=== PATIENT | male | born 1935 | race Caucasian/White ===

== ENCOUNTER → 2016-10-23 | Outpatient (CLI) | payer OTHER ==
[~2016-10-23] MED LIST: ASPI-650 PO; CARV6.2579 PO; DIAZ10TA4 PO; DIPH-232 PO; ETRA200T PO; FENO160T13 PO; HYDR-1666 PO; INTELENCE; LISI-313 PO; MIRT15TA3 PO; OLOP5DRO12 OP; PRAV80TA PO; RALT400T4 PO; SELE180S3 TP; SILD50TA36 PO; VALA500T32 PO; [UNRECOGNIZED DRUG - CODE] IM
--- NOTE | 2016-10-23 13:20 | RADRPT ---
PROCEDURE: XR Chest. CLINICAL INDICATION: Cough. TECHNIQUE: Single frontal view of the chest was obtained COMPARISON: Chest x-ray 09/16/2014 11:34 a.m. FINDINGS: A mediastinotomy was performed. The left ventricle is enlarged with a less aorta is ectatic. There is a right pleural effusion with compressive atelectasis in the right lower lobe. The pulmonary va sculature is normal. Degenerative osteophytes in the thoracic spine. IMPRESSION: 1. Status post median sternotomy with a small left pleural effusion and right lower lobe atelectasis which may be slightly worse when compared to the prior study. There is mild associated elevation o f the right diaphragm. 2. Cardiomegaly with left ventricular enlargement. 3. Atherosclerosis ectasia of the thoracic aorta. 4. Spondylosis of the thoracic spine. RPTAT:AAJJ Physician Felicitas Date Time Electronically viewed and signed by Physician Felicitas on 10/23/2016 13:20 CHIDI/
== END | disposition home or self-care (01) ==
LOC: RAD 12:12
PROVIDERS: ATTEND Family Medicine
DX: Z01.818 Encounter for other preprocedural examination (principal); J90 Pleural effusion, not elsewhere classified; J98.11 Atelectasis; I51.7 Cardiomegaly; I70.0 Atherosclerosis of aorta; M47.894 Other spondylosis, thoracic region
CPT/HCPCS: 71010

== ENCOUNTER 2019-03-11 12:32 | Inpatient (IN) | payer OTHER ==
[2019-03-11] VITALS (22 sets, daily range): BP systolic 86–160; BP diastolic 65–105; PULSE 78–90; RESP 14–27; Ht 167.6 cm; Wt 61.4 kg
[~2019-03-11] VITALS: Ht 167.6 cm; Wt 61.4 kg
[~2019-03-11 12:32] MED LIST changes: -ETRA200T PO; +ISEN400 PO; -RALT400T4 PO; -SILD50TA36 PO; -VALA500T32 PO; +VALA500T4 PO; +[UNRECOGNIZED DRUG - CODE] PO; +[UNRECOGNIZED DRUG - CODE] PO
[2019-03-11] MEDS ORDERED: SOD CHLORIDE 0.9% 500 ML IV STA (12:44)
[2019-03-11] MEDS ORDERED: ONDANSETRON 4 MG INJ IV ONE (13:00)
[2019-03-11] MEDS ORDERED: morphine 4 MG/ML VIAL IV ONE (13:00)
--- NOTE | 2019-03-11 13:10 | ERD ---
ER Documentation Chief Complaint Chief Complaint [id number] fr hm, left hip pain s/p fall last night and 2 days ago HPI category development manager used. 84yoM with hx of CAD and CABG who presents to the ED with left hip pain s/p fall today. Patient states 2 falls in last 2-3 days with possible CHI. Patient with subacute laceration overlying left eyebrow that is now healing. Tetanus UTD. Denies prodrome of chest pain or sob or headache. No neck pain. Pain to left hip is constant, 8/10, throbbing, and worse with movement. No family available. Lives with "roommate". ROS All systems reviewed and are negative except as per history of present illness. Medications Home Meds Discontinued Reported Medications Etravirine (INTELENCE) 200 Mg Tablet, 200 MG PO BID 09/16/14 [Intelence] No Conflict Check, 200 MG BID 10/25/12 Selenium Sulfide (Selenium Sulfide) 180 Ml Shampoo, 180 ML TP 10/22/12 Olopatadine* (Patanol* Ophth) 5 Ml Drops, 5 ML OP TID 10/22/12 Sildenafil Citrate* (Viagra*) 50 Mg Tablet, 50 MG PO PRN 10/22/12 Diphenoxylate Hcl-Atropine (Lomotil) 1 Tab Tablet, 1 TAB PO PRN 10/22/12 Testosterone Cypionate* (Depo-Testosterone*) 200 Mg/Ml Vial, 200 MG IM every 10 days 10/22/12 Hydrocodone Bit/Acetaminophen (Vicodin 5/500 Tablet) 1 Tab Tablet, 1 TAB PO Q4 PRN 10/22/12 Diazepam* (Diazepam*) 10 Mg Tablet, 10 MG PO HS 10/22/12 Mirtazapine* (Remeron* Soltab) 15 Mg/Tab Tab.rapdis, 15 MG PO HS 10/22/12 valACYclovir Hcl* (Valtrex*) 500 Mg Tablet, 500 MG PO DAILY 10/22/12 Fenofibrate, Micronized* (Fenofibrate*) 160 Mg Tablet, 160 MG PO DAILY 10/22/12 Pravastatin Sodium* (Pravachol*) 80 Mg Tablet, 80 MG PO HS 10/22/12 Aspirin (Aspirin) 81 Mg Tablet, 81 MG PO DAILY 10/22/12 Lisinopril* (Lisinopril*) 5 Mg Tablet, 5 MG PO DAILY 10/22/12 Carvedilol* (Carvedilol*) 6.25 Mg Tablet, 6.25 MG PO BID 10/22/12 Raltegravir Potassium* (Isentress*) 400 Mg Tablet, 400 MG PO BID 10/22/12 Allergies Allergies: Coded Allergies: Sulfa (Sulfonamide Antibiotics) (Verified Allergy, Unknown, 03/11/19) PMhx/Soc History of Surgery: Yes (AORTIC VALVE REPLACEMENT 2007) Anesthesia Reaction: No Hx Neurological Disorder: No Hx Respiratory Disorders: No Hx Cardiac Disorders: Yes (AORTIC VALVE REPLACEMENT) Hx Psychiatric Problems: No Hx Alcohol Use: No Hx Substance Use: No Hx Tobacco Use: No Physical Exam Vitals Vital Signs Date Temp Pulse Resp B/P (MAP) Pulse Ox O2 O2 Flow FiO2 Time Delivery Rate 03/11/19 98.7 78 18 150/106 97 Nasal 3.0 13:26 (121) Cannula 03/11/19 Nasal 3 13:20 Cannula 03/11/19 98.7 80 18 174/88 97 12:49 (116) Physical Exam Const: No acute distress Head: subacute laceration of forehead just above left eyebrow that is healing and well approximated about 1.0 cm in length Eyes: Normal Conjunctiva ENT: Normal External Ears, Nose and Mouth. Neck: Full range of motion. No meningismus. No midline TTP deformities or step offs Resp: Clear to auscultation bilaterally Cardio: Regular rate and rhythm, no murmurs Abd: Soft, non tender, non distended. Normal bowel sounds Skin: No petechiae or rashes Back: No midline or flank tenderness Ext: Left hip focal TTP with mild shortening and pain with flex/ext and inter nal and external rotation. No TTP to left knee or ankle. NV intact distally. Neur: Awake and alert Psych: Normal Mood and Affect Result Diagram: 03/11/19 1248 03/11/19 1248 Results 24 hrs Laboratory Tests Test 03/11/19 12:48 White Blood Count 5.9 10^3/ul Red Blood Count 4.11 10^6/ul Hemoglobin 11.9 g/dl Hematocrit 38.0 % Mean Corpuscular Volume 92.5 fl Mean Corpuscular Hemoglobin 29.0 pg Mean Corpuscular Hemoglobin Concent 31.3 g/dl Red Cell Distribution Width 14.4 % Platelet Count 148 10^3/UL Mean Platelet Volume 10.7 fl Immature Granulocytes % 0.300 % Neutrophils % 74.2 % Lymphocytes % 17.0 % Monocytes % 6.3 % Eosinophils % 1.7 % Basophils % 0.5 % Nucleated Red Blood Cells % 0.0 /100WBC Immature Granulocytes # 0.020 10^3/ul Neutrophils # 4.4 10^3/ul Lymphocytes # 1.0 10^3/ul Monocytes # 0.4 10^3/ul Eosinophils # 0.1 10^3/ul Basophils # 0.0 10^3/ul Nucleated Red Blood Cells # 0.0 10^3/ul Prothrombin Time 15.0 Sec Prothrombin Time Ratio 1.2 INR International Normalized Ratio 1.17 Activated Partial Thromboplast Time 35.9 Sec Sodium Level 141 mmol/L Potassium Level 4.2 mmol/L Chloride Level 103 mmol/L Carbon Dioxide Level 31 mmol/L Anion Gap 7 Blood Urea Nitrogen 11 mg/dl Creatinine 0.68 mg/dl Est Glomerular Filtrat Rate mL/min mL/min Glucose Level 110 mg/dl Calcium Level 9.3 mg/dl Troponin I < 0.012 ng/ml Current Medications Medications Dose Sig/Frank Start Time Status Last (Trade) Ordered Route PRN Stop Time Admin Dose Reason Admin Sodium 500 ml @ Q1H STAT 03/11/19 DC 03/11/19 Chloride 500 mls/hr IV 12:44 12:57 03/11/19 13:43 Morphine 4 mg ONCE ONCE 03/11/19 DC 03/11/19 Sulfate IV 13:00 12:55 (morphine) 03/11/19 13:01 Ondansetron 4 mg ONCE ONCE 03/11/19 DC 03/11/19 HCl (Zofran IV 13:00 12:55 Inj) 03/11/19 13:01 Procedures/MDM EKG, MONITORS, & DIAGNOSTIC IMAGING: EKG: EKG: I reviewed and interpreted a 12-lead EKG. Rhythm: Normal sinus rhythm ST Changes: No contiguous ST segment elevations T waves: No contiguous T wave inversions Impression: No evidence of acute cardiac ischemia CXR: IMPRESSION: 1. Interval decrease bilateral interstitial edema 2. Bibasilar discoid atelectasis and chronic right hemidiaphragmatic elevation 3. Status post median sternotomy and heart surgery 4. Mild cardiomegaly and atherosclerotic vascular disease unchanged RPTAT: HDC CTB: IMPRESSION: 1. Acute small, 5 mm left holohemispheric subdural hematoma. 2. Mild to moderate chronic microvascular ischemic disease and diffuse volume loss 3. Mild atherosclerotic vascular disease 4. Chronic bilateral orbital floor fractures. A call report was made to Dr. Levine at 03/11/2019 1:38:15 PM following the completion of the examination by the undersigned. RPTAT: [facility] [place] XR PELVIS: X-ray pelvis: I reviewed and interpreted 1 view of the pelvis, left fem neck fx, no dislocation, subluxation, or foreign body. Interpretation: No acute process. XR Left hip I reviewed and interpreted multiple views of the x-ray Bones: Femoral neck fracture Soft tissue: No evidence of foreign body LAB INTERPRETATION: I reviewed the laboratory testing and it shows no evidence of acute process MEDICAL DECISION MAKING: Patient with exam concerning for closed left hip fracture. XR imaging indicated. Patient also with 2 falls in past 2 days concerning for inability to care for self and given increased fall risk, inpatient hospitalization needed. CT brain ok. NEXUS C spine rule met, no indication for CT c spine. Lac well appearing, tetanus updated. No si/sx concerning for syncope. ER COURSE: * The patient CT brain shows evidence of subdural. The patient has a nonfocal exam. His blood pressure is trending down to the 150 range. I would accept systolic blood pressure less than 150, awaiting neurosurgery recommendations. No indication for nicardipine drip. * Patient only takes aspirin. No other anticoagulants. * Patient likely benefit from repeat CT in 6 to 12 hours. Again awaiting neurosurgery consultation recommendations. Dr. Gregg was paged but in surgery currently. * Orthopedic surgeon notified of left hip fracture but the patient also has a [employer] process. Dr. Claudio will consult CONSULTATION: Neurosurgery Dr. Gregg page x2, currently in the operating room, awaiting callback Orthopedic surgery, Dr. Claudio notified via [facility] DISPOSITION PLAN: Intensive care unit Accepting care team and consultations: I discussed the current laboratory data, diagnostic imaging and emergency care provided. Admitting team: Dr. Wu Admitting team indication: Insurance directed Critical Care Note: Total time: 35 min Indication/Organ System Threat: Acute subdural hemorrhage I spent the above amount of critical care time with the patient, not including billable procedures. This included chart review, consultations, repeat bedside evaluations, and titration of appropriate medications to prevent cardiopulmonary or respiratory collapse. Departure Diagnosis: Primary Impression: Subdural hemorrhage Additional Impression: Closed displaced fracture of left femoral neck Condition: MIKE Del Rosario MD Mar 11, 2019 13:10
[2019-03-11] MEDS ORDERED: niCARdipine-NS 0.1MG/ML DRIP 200 ML IV STA (14:21)
[2019-03-11] MEDS ORDERED: MULTI PO (14:39)
[2019-03-11] MEDS ORDERED: CHOL100062 PO (14:40)
[2019-03-11] MEDS ORDERED: CALC1TAB93 PO (14:41)
[2019-03-11] MEDS ORDERED: CYAN100092 IJ (14:42)
[2019-03-11] MEDS ORDERED: MELO15TA30 PO (14:43)
[2019-03-11] MEDS ORDERED: ACYC400T2 PO (14:44)
[2019-03-11] MEDS ORDERED: DOLU1TAB PO (14:45)
[2019-03-11] MEDS ORDERED: MIRT15TA5 PO (14:47)
[2019-03-11] MEDS ORDERED: MARA300T4 PO (14:48)
[2019-03-11] MEDS ORDERED: ROSU40TA35 PO (14:48)
[2019-03-11] MEDS ORDERED: ALEN70TA5 PO (14:50)
[2019-03-11] MEDS ORDERED: DOXE10CA PO (14:50)
[2019-03-11] MEDS ORDERED: HYDR-4012 PO (14:51)
[2019-03-11] MEDS ORDERED: ONDANSETRON 4 MG INJ IV PRN (16:30)
[2019-03-11] MEDS ORDERED: NACL 0.9% 3 ML SYG IV SCH (16:30)
[2019-03-11] MEDS ORDERED: hydrALAzine 20 MG INJ IV PRN (16:30)
[2019-03-11] MEDS ORDERED: HYDROCODONE/APAP (5/325) TAB PO PRN (16:30)
--- NOTE | 2019-03-11 16:42 | HP ---
Date/Time of Note Date/Time of Note DATE: 03/11/19 TIME: 16:23 Assessment/Plan VTE Prophylaxis SCD applied (from Nsg): Yes Pharmacological prophylaxis: NA/contraindicated Pharm contraindication: bleeding Assessment/Plan Assessment/Plan 84 yo man history of aortic valve replacement, HIV presents with L hip fracture and subdural hematoma after fall #Subdural hematoma - Dr. Gregg consulted - Repeat head CT in 6-12 hours depending on neurosurgery recs. - Hydralazine prn SBP>160 unless neurosurg wants lower goal. - Anticoagulation per neurosurgery recs. #L hip fracture - Dr. Claudio consulted - Plan for L hip total arthroplasty when cleared by neurosurgery and cardiology - Mchenry, IV dilaudid for pain control - Bedrest. - High risk for DVT, will start therapeutic anticoagulation when okay per neurosurg #Aortic valve replacement - Patient does report some dyspnea on exertion recently, otherwise no major CHF or ACS symptoms. - Will get TTE - Dr. Bass consulted for surgical clearance #HIV - Continue home antiretrovirals - Will check viral load and CD4 count - No signs or symptoms of acute HIV or opportunistic infections. #Chronic lower back pain - Unfortunately will be immobilized until hip replacement - Holding home NSAID for intracranial bleed - Opioids as above. #Dyslipidemia - Cont statin #Osteoporosis - Cont vitamin D DVT: SCDs only GI: Protonix PO Result Diagram: 03/11/19 1248 03/11/19 1248 HPI/ROS Admit Date/Time Admit Date/Time Mar 11, 2019 at 14:10 Hx of Present Illness Mr. aTnner is an 84 yo Turkmen-speaking man with history of HIV and aortic valve replacement who presents after falling out of bed. He was in his usual state of health until about 3 am this morning when he woke up to urinate. While trying to get out of bed he fell and landed on his L hip and had severe pain. His roommate helped him back into bed. By the morning the hip pain had not improved so he called an ambulance to take him to the ED. He reports that overall he is healthy and is mostly independent. Lives with roommate. Last hospitalization more than a year ago. In the ED he was afebrile, P 70, slightly hypertensive to 150/106. Labs unremarkable including negative troponin. XR of the hip showed a L femoral neck fracture. CT head showed a 5mm subdural hemorrhage in the L anterior cranial fossa. ROS Denies recent fever, chills, night sweats, anorexia, weight loss, headache, vision changes, dizziness, dysphagia, sore throat, cough, chest pain/pressure/palpitations, nausea, vomiting, abdominal pain, diarrhea, melena, hematochezia. dysuria, urinary obstructive symptoms. He DOES report occasional dyspnea on exertion. Also constipation. PMH/Family/Social Past Medical History HIV on HAART (see med rec) Chronic lower back pain on Mchenry and meloxicam Dyslipidemia Osteoporosis Medications Current Medications Nicardipine HCl 200 ml @ 50 mls/hr ONCE STAT IV Last administered on 03/11/19at 15:01; Admin Dose 50 MLS/HR; Start 03/11/19 at 14:21; Stop 03/11/19 at 18:20 Sodium Chloride 1,000 ml @ 75 mls/hr [id number] IV ; Start 03/11/19 at 16:09; S tatus UNV IV Flush (NS 3 ml) 3 ml PER PROTOCOL IV ; Start 03/11/19 at 16:30; Status UNV Ondansetron HCl (Zofran Inj) 4 mg Q6H PRN IV NAUSEA/VOMITING; Start 03/11/19 at 16:30; Status UNV Acetaminophen/ Hydrocodone Bitart (Mchenry (5/325)) 2 tab Q6H PRN PO .SEVERE PAIN 7-10; Start 03/11/19 at 16:30; Status UNV Hydromorphone HCl (Dilaudid) 1 mg Q4H PRN IV .SEVERE PAIN 7-10; Start 03/11/19 at 16:30; Status UNV Pantoprazole (Protonix Tab) 40 mg DAILY@06 PO ; Start 03/12/19 at 06:00; Status UNV Acyclovir (Zovirax) 400 mg DAILY PO ; Start 03/12/19 at 09:00; Status UNV Calcium/Vitamin D (Oyster Shell/ Vit-D (500/200)) 1 tab BID PO ; Start 03/11/19 at 21:00; Status UNV Cholecalciferol (Vitamin D) 1,000 unit DAILY PO ; Start 03/12/19 at 09:00; Status UNV Acetaminophen/ Hydrocodone Bitart (Mchenry (7.5-325)) 1 tab Q4H PRN PO pain; Start 03/11/19 at 16:30; Status UNV Mirtazapine (Remeron) 15 mg HS PO ; Start 03/11/19 at 21:00; Status UNV Multivitamins Therapeutic (Theragran) 1 tab DAILY PO ; Start 03/12/19 at 09:00; Status UNV Rosuvastatin Calcium (Crestor) 40 mg QHS PO ; Start 03/11/19 at 21:00; Status UNV Miscellaneous Information 1 each DAILY PO ; Start 03/12/19 at 09:00; Status UNV Miscellaneous Information 300 mg BID PO ; Start 03/11/19 at 21:00; Status UNV Coded Allergies: Sulfa (Sulfonamide Antibiotics) (Verified Allergy, Unknown, 03/11/19) Past Surgical History R hip fracture s/p surgical repair 6 years ago Aortic valve replacement 2007 Hernia repair Social History Lives in apartment with roommate. Alcohol Use: none Smoking Status: Never smoker Drug Use: none Exam/Review of Systems Vital Signs Vitals Vital Signs Date Temp Pulse Resp B/P (MAP) Pulse Ox O2 O2 Flow FiO2 Time Delivery Rate 03/11/19 89 16:00 03/11/19 100.0 18 152/82 98 Nasal 3.0 15:04 (105) Cannula Exam Exam Gen: Robust appearing elderly man awake supine in bed, comfortable appearing. Eyes: Pupils minimally reactive to light bilaterally. No icterus HEENT: Dry mucous membranes, clear oropharynx Neck: No lymphadenopathy, supple, nontender. Card: Regular rate and rhythm, 3/6 systolic ejection murmur loudest at RUSB and LUSB. Chest: well healed sternotomy scar Pulm: Clear to auscultation bilaterally Abd: Soft, nontender, nondistended. Hypoactive bowel sounds. Ext: L hip pain with L foot torsion. Hip is not very tender to palpation, no hematoma. Peripheral pulses about 1+. Trace pedal edema bilaterally. Skin: warm, dry, well perfused. EMI GROSSMAN MD Mar 11, 2019 16:34
[2019-03-11] MEDS: SOD CHLORIDE 0.9% 1,000 ML IV SCH (17:24)
--- NOTE | 2019-03-11 17:59 | CONS ---
Assessment/Plan Assessment/Plan Hospital Course (Demo Recall) 84 yo with recent falls with subdural hematoma and hip fracture. Patient has a h/o aortic valve replacement, has had dyspnea for the past 8 months, afib which is rate controlled of unclear duration, and hypertension. Impression: Preoperative cardiovascular clearance. Dyspnea for several months, of unclear etiology Atrial fibrillation, unclear duration, rate controlled Bioprosthetic aortic valve, placed around 2007 Hypertension, controlled at present Recommendations: He may proceed with neurosurgery and/or hip surgery at at least intermediate risk of perioperative cardiovascular complications He appears to be acutely compensated from a cardiac standpoint, based on exam I doubt severe prosthetic aortic stenosis, and he is not volume overloaded. Will get an echo to assess LV function and bioprosthetic valve Agree with anticoagulation for DVT prophylaxis Consultation Date/Type/Reason Admit Date/Time Mar 11, 2019 at 14:10 Date of Consultation: Mar 11, 2019 Type of Consult Cardiology Reason for Consultation preoperative cardiovascular evaluation Requesting Provider: EMI GROSSMAN MD Date/Time of Note DATE: 03/11/19 TIME: 17:46 Hx of Present Illness 84 yo with history of aortic valve replacement, who presents after a fall this am around 0300. He has had three falls since he was discharged from [facility] on February 15, states they occur when he rushes to get to the bathroom. He was on the floor with severe left hip pain until he was found around 1000, brought to the ED, where imaging demonstrated hip fracture. He also has a laceration above his left eyebrow, fell a couple days ago, and has a subdural hematoma. Patient states he has been more short of breath in the past 8 months, gets short of breath just getting around his home, the episodes are sporadic. He does not have chest pain. He has no dyspnea at present. 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 He states he has had numerous tests in the past 8 months related to dyspnea, but cannot name them. He takes aspirin at home, states he reliably takes all his pills with food twice a day, does not believe he is on any type of anticoagulation. He does not recall being told that he has atrial fibrillation. History obtained with healthcare interpreter present. Constitutional: no complaints Eyes: no complaints ENT: no complaints Respiratory: shortness of breath Cardiovascular: no complaints; No chest pain Gastrointestinal: no complaints Genitourinary: other (urinary urgency) Musculoskeletal: bone/joint pain (hip pain) Skin: no complaints Neurologic: headache Endocrine: no complaints Lymphatic: no complaints Psychological: no complaints Immunologic: no complaints Past Medical History Medical History: GI bleed, high cholesterol, other (HIV) Home Meds Reported Medications Hydrocodone/Acetaminophen (River 7.5-325 Tablet) 1 Each Tablet, 1 EACH PO Q6H PRN for PRN, TAB 03/11/19 Doxepin Hcl* (Doxepin Hcl*) 10 Mg Capsule, 10 MG PO HS, CAP 03/11/19 Alendronate Sodium* (Fosamax*) 70 Mg Tablet, 70 MG PO Q7D, #4 TAB 03/11/19 Maraviroc (Selzentry) 300 Mg Tablet, 300 MG PO BID, TAB 03/11/19 Rosuvastatin Calcium* (Crestor*) 40 Mg Tablet, 40 MG PO QHS, #30 TAB 03/11/19 Mirtazapine* (Mirtazapine*) 15 Mg Tablet, 15 MG PO HS, TAB 03/11/19 Dolutegravir/Rilpivirine (Juluca 50-25 mg Tablet) 1 Each Tablet, 1 EACH PO DAILY, TAB 03/11/19 Acyclovir* (Acyclovir*) 400 Mg Tablet, 400 MG PO DAILY, TAB 03/11/19 Meloxicam* (Mobic*) 15 Mg Tablet, 15 MG PO DAILY, #30 TAB 03/11/19 Cyanocobalamin (Vitamin B-12) (Cyanocobalamin Injection) 1,000 Mcg/1 Ml Vial, 1000 MCG IJ Q28D, VIAL 03/11/19 Calcium Carbonate/Vitamin D3 (OYSTER SHELL 500 MG + VIT D TB) 1 Each Tablet, 1 EACH PO BID, TAB 03/11/19 Cholecalciferol* (Vitamin D3*) 1,000 Unit Tablet, 1000 UNIT PO DAILY, TAB 03/11/19 Multivitamins* (Theragran*) 1 Tab Tab, 1 TAB PO DAILY, TAB 03/11/19 Discontinued Reported Medications Etravirine (INTELENCE) 200 Mg Tablet, 200 MG PO BID 09/16/14 [Intelence] No Conflict Check, 200 MG BID 10/25/12 Selenium Sulfide (Selenium Sulfide) 180 Ml Shampoo, 180 ML TP 10/22/12 Olopatadine* (Patanol* Ophth) 5 Ml Drops, 5 ML OP TID 10/22/12 Sildenafil Citrate* (Viagra*) 50 Mg Tablet, 50 MG PO PRN 10/22/12 Diphenoxylate Hcl-Atropine (Lomotil) 1 Tab Tablet, 1 TAB PO PRN 10/22/12 Testosterone Cypionate* (Depo-Testosterone*) 200 Mg/Ml Vial, 200 MG IM every 10 days 10/22/12 Hydrocodone Bit/Acetaminophen (Vicodin 5/500 Tablet) 1 Tab Tablet, 1 TAB PO Q4 PRN 10/22/12 Diazepam* (Diazepam*) 10 Mg Tablet, 10 MG PO HS 10/22/12 Mirtazapine* (Remeron* Soltab) 15 Mg/Tab Tab.rapdis, 15 MG PO HS 10/22/12 valACYclovir Hcl* (Valtrex*) 500 Mg Tablet, 500 MG PO DAILY 10/22/12 Fenofibrate, Micronized* (Fenofibrate*) 160 Mg Tablet, 160 MG PO DAILY 10/22/12 Pravastatin Sodium* (Pravachol*) 80 Mg Tablet, 80 MG PO HS 10/22/12 Aspirin (Aspirin) 81 Mg Tablet, 81 MG PO DAILY 10/22/12 Lisinopril* (Lisinopril*) 5 Mg Tablet, 5 MG PO DAILY 10/22/12 Carvedilol* (Carvedilol*) 6.25 Mg Tablet, 6.25 MG PO BID 10/22/12 Raltegravir Potassium* (Isentress*) 400 Mg Tablet, 400 MG PO BID 10/22/12 Medications Current Medications Sodium Chloride 1,000 ml @ 75 mls/hr [id number] IV Last administered on 03/11/19at 17:24; Admin Dose 75 MLS/HR; Start 03/11/19 at 16:09 IV Flush (NS 3 ml) 3 ml PER PROTOCOL IV ; Start 03/11/19 at 16:30 Ondansetron HCl (Zofran Inj) 4 mg Q6H PRN IV NAUSEA/VOMITING; Start 03/11/19 at 16:30 Hydromorphone HCl (Dilaudid) 1 mg Q4H PRN IV .SEVERE PAIN 7-10; Start 03/11/19 at 16:30 Pantoprazole (Protonix Tab) 40 mg DAILY@06 PO ; Start 03/12/19 at 06:00 Acyclovir (Zovirax) 400 mg DAILY PO ; Start 03/12/19 at 09:00 Calcium/Vitamin D (Oyster Shell/ Vit-D (500/200)) 1 tab BID PO ; Start 03/11/19 at 21:00 Cholecalciferol (Vitamin D) 1,000 unit DAILY PO ; Start 03/12/19 at 09:00 Acetaminophen/ Hydrocodone Bitart (River (7.5-325)) 1 tab Q4H PRN PO pain; Start 03/11/19 at 16:30 Mirtazapine (Remeron) 15 mg HS PO ; Start 03/11/19 at 21:00 Multivitamins Therapeutic (Theragran) 1 tab DAILY PO ; Start 03/12/19 at 09:00 Rosuvastatin Calcium (Crestor) 40 mg QHS PO ; Start 03/11/19 at 21:00 Miscellaneous Information 1 each DAILY PO ; Start 03/12/19 at 09:00; Status UNV Miscellaneous Information 300 mg BID PO ; Start 03/11/19 at 21:00; Status UNV Hydralazine HCl (Apresoline) 10 mg Q4H PRN IV ELEVATED SYSTOLIC BP; Start 03/11/19 at 16:30 Allergies: Coded Allergies: Sulfa (Sulfonamide Antibiotics) (Verified Allergy, Unknown, 03/11/19) Past Surgical History Past Surgical Hx: other (aortic valve replacement 2007) Family History Significant Family History: no pertinent family hx Social History Alcohol Use: none Smoking Status: Never smoker Drug Use: none Exam/Review of Systems Vital Signs Vitals Vital Signs Date Temp Pulse Resp B/P (MAP) Pulse Ox O2 O2 Flow FiO2 Time Delivery Rate 03/11/19 80 18 160/99 98 Nasal 17:30 (119) Cannula 03/11/19 4.0 16:51 03/11/19 98.6 16:00 Exam Constitutional: alert, oriented, well developed Psych: no complaints, nl mood/affect Head: lacerations (above left eye) Eyes: nl conjunctiva, EOMI, nl lids, nl sclera ENMT: nl external ears & nose, nl lips & teeth Neck: supple; No jvd, No bruits Respiratory: clear to auscultation (anteriorly), normal air movement Cardiovascular: regular rate and rhythm, murmurs/extra sounds (soft systolic murmur at the left upper sternal border) Gastrointestinal: soft, nl liver, spleen, non-tender Musculoskeletal: nl extremities to inspection Extremities: No edema Neurological: nl mental status, nl speech Skin: nl turgor Labs Result Diagram: 03/11/19 1248 03/11/19 1248 Results 24hrs Laboratory Tests Test 03/11/19 12:48 White Blood Count 5.9 Red Blood Count 4.11 L Hemoglobin 11.9 #L Hematocrit 38.0 L Mean Corpuscular Volume 92.5 Mean Corpuscular Hemoglobin 29.0 Mean Corpuscular Hemoglobin Concent 31.3 L Red Cell Distribution Width 14.4 Platelet Count 148 Mean Platelet Volume 10.7 H Immature Granulocytes % 0.300 Neutrophils % 74.2 Lymphocytes % 17.0 Monocytes % 6.3 Eosinophils % 1.7 Basophils % 0.5 Nucleated Red Blood Cells % 0.0 Immature Granulocytes # 0.020 Neutrophils # 4.4 Lymphocytes # 1.0 Monocytes # 0.4 Eosinophils # 0.1 Basophils # 0.0 Nucleated Red Blood Cells # 0.0 Prothrombin Time 15.0 H Prothrombin Time Ratio 1.2 INR International Normalized Ratio 1.17 Activated Partial Thromboplast Time 35.9 H Sodium Level 141 Potassium Level 4.2 Chloride Level 103 Carbon Dioxide Level 31 Anion Gap 7 Blood Urea Nitrogen 11 Creatinine 0.68 Est Glomerular Filtrat Rate mL/min Glucose Level 110 Calcium Level 9.3 Troponin I < 0.012 HIV (1&2) Antibody REACTIVE H Imaging Imaging EKG shows atrial fibrillation at 80 bpm, lvh with repolarization abnormality Medications Medications Current Medications Sodium Chloride 1,000 ml @ 75 mls/hr [id number] IV Last administered on 03/11/19at 17:24; Admin Dose 75 MLS/HR; Start 03/11/19 at 16:09 IV Flush (NS 3 ml) 3 ml PER PROTOCOL IV ; Start 03/11/19 at 16:30 Ondansetron HCl (Zofran Inj) 4 mg Q6H PRN IV NAUSEA/VOMITING; Start 03/11/19 at 16:30 Hydromorphone HCl (Dilaudid) 1 mg Q4H PRN IV .SEVERE PAIN 7-10; Start 03/11/19 at 16:30 Pantoprazole (Protonix Tab) 40 mg DAILY@06 PO ; Start 03/12/19 at 06:00 Acyclovir (Zovirax) 400 mg DAILY PO ; Start 03/12/19 at 09:00 Calcium/Vitamin D (Oyster Shell/ Vit-D (500/200)) 1 tab BID PO ; Start 03/11/19 at 21:00 Cholecalciferol (Vitamin D) 1,000 unit DAILY PO ; Start 03/12/19 at 09:00 Acetaminophen/ Hydrocodone Bitart (River (7.5-325)) 1 tab Q4H PRN PO pain; Start 03/11/19 at 16:30 Mirtazapine (Remeron) 15 mg HS PO ; Start 03/11/19 at 21:00 Multivitamins Therapeutic (Theragran) 1 tab DAILY PO ; Start 03/12/19 at 09:00 Rosuvastatin Calcium (Crestor) 40 mg QHS PO ; Start 03/11/19 at 21:00 Miscellaneous Information 1 each DAILY PO ; Start 03/12/19 at 09:00; Status UNV Miscellaneous Information 300 mg BID PO ; Start 03/11/19 at 21:00; Status UNV Hydralazine HCl (Apresoline) 10 mg Q4H PRN IV ELEVATED SYSTOLIC BP; Start 03/11/19 at 16:30 MUMTAZ BAPTISTE Mar 11, 2019 17:59
[2019-03-11] MEDS ORDERED: MARAVIROC 300 MG PO SCH (21:00)
[2019-03-11] MEDS: MIRTAZAPINE 15 MG TAB PO SCH (21:00)
[2019-03-11] MEDS: ROSUVASTATIN CALCIUM 40 MG TABLET PO SCH (21:00)
[2019-03-11] MEDS: CALCIUM/VITAMIN D (500/200) TAB PO SCH (21:00)
--- NOTE | 2019-03-11 21:44 | CONS ---
Assessment/Plan Assessment/Plan Hospital Course (Demo Recall) 84-year-old male with acute left femoral neck fracture and subdural hematoma. Once he is cleared from a neurosurgical standpoint and recommended the patient that he undergo left hemiarthroplasty. I discussed the benefits and risks with the patient. The risks included but not limited to risks of anesthesia, medical complications, DVT, cardiopulmonary complications, stroke, infection, dis location, mechanical wear, loosening, neurovascular injury, persistent pain, need for revision surgery. He understood these benefits and risks and wished to proceed with surgery. Plan: N.p.o. at midnight Follow-up with neurosurgery recommendations. Patient booked preliminarily for 1:30 PM on 03/12/2019 Nonweightbearing left lower extremity Thomas Pain control SCDs bilateral lower extremities Consultation Date/Type/Reason Admit Date/Time Mar 11, 2019 at 14:10 Date of Consultation: Mar 11, 2019 Reason for Consultation Left hip fracture Date/Time of Note DATE: 03/11/19 TIME: 21:44 Hx of Present Illness 84-year-old male with history of HIV who fell out of bed when getting up to go to the bathroom in the middle the night around 3 AM. He had severe left hip pain. He was unable to get up. His roommate helped him back in the bed. In the morning his pain persisted and he was brought to the emergency department [facility]. He was found subdural hematoma and a found to have a femoral neck fracture that was displaced. Neurosurgery and orthopedics was consulted. Patient denies any numbness and tingling. Patient states he has groin pain with any movement. He denies any previous hip pain. He last took aspirin on Friday. Patient denies fever, chills, shortness of breath, chest pain, nausea/vomiting, constipation, diarrhea, numbness, and tingling. Past Medical History Aortic valve replacement HIV Hypertension Chronic back pain Home Meds Reported Medications Hydrocodone/Acetaminophen (Norfolk 7.5-325 Tablet) 1 Each Tablet, 1 EACH PO Q6H PRN for PRN, TAB 03/11/19 Doxepin Hcl* (Doxepin Hcl*) 10 Mg Capsule, 10 MG PO HS, CAP 03/11/19 Alendronate Sodium* (Fosamax*) 70 Mg Tablet, 70 MG PO Q7D, #4 TAB 03/11/19 Maraviroc (Selzentry) 300 Mg Tablet, 300 MG PO BID, TAB 03/11/19 Rosuvastatin Calcium* (Crestor*) 40 Mg Tablet, 40 MG PO QHS, #30 TAB 03/11/19 Mirtazapine* (Mirtazapine*) 15 Mg Tablet, 15 MG PO HS, TAB 03/11/19 Dolutegravir/Rilpivirine (Juluca 50-25 mg Tablet) 1 Each Tablet, 1 EACH PO DAILY, TAB 03/11/19 Acyclovir* (Acyclovir*) 400 Mg Tablet, 400 MG PO DAILY, TAB 03/11/19 Meloxicam* (Mobic*) 15 Mg Tablet, 15 MG PO DAILY, #30 TAB 03/11/19 Cyanocobalamin (Vitamin B-12) (Cyanocobalamin Injection) 1,000 Mcg/1 Ml Vial, 1000 MCG IJ Q28D, VIAL 03/11/19 Calcium Carbonate/Vitamin D3 (OYSTER SHELL 500 MG + VIT D TB) 1 Each Tablet, 1 EACH PO BID, TAB 03/11/19 Cholecalciferol* (Vitamin D3*) 1,000 Unit Tablet, 1000 UNIT PO DAILY, TAB 03/11/19 Multivitamins* (Theragran*) 1 Tab Tab, 1 TAB PO DAILY, TAB 03/11/19 Discontinued Reported Medications Etravirine (INTELENCE) 200 Mg Tablet, 200 MG PO BID 09/16/14 [Intelence] No Conflict Check, 200 MG BID 10/25/12 Selenium Sulfide (Selenium Sulfide) 180 Ml Shampoo, 180 ML TP 10/22/12 Olopatadine* (Patanol* Ophth) 5 Ml Drops, 5 ML OP TID 10/22/12 Sildenafil Citrate* (Viagra*) 50 Mg Tablet, 50 MG PO PRN 10/22/12 Diphenoxylate Hcl-Atropine (Lomotil) 1 Tab Tablet, 1 TAB PO PRN 10/22/12 Testosterone Cypionate* (Depo-Testosterone*) 200 Mg/Ml Vial, 200 MG IM every 10 days 10/22/12 Hydrocodone Bit/Acetaminophen (Vicodin 5/500 Tablet) 1 Tab Tablet, 1 TAB PO Q4 PRN 10/22/12 Diazepam* (Diazepam*) 10 Mg Tablet, 10 MG PO HS 10/22/12 Mirtazapine* (Remeron* Soltab) 15 Mg/Tab Tab.rapdis, 15 MG PO HS 10/22/12 valACYclovir Hcl* (Valtrex*) 500 Mg Tablet, 500 MG PO DAILY 10/22/12 Fenofibrate, Micronized* (Fenofibrate*) 160 Mg Tablet, 160 MG PO DAILY 10/22/12 Pravastatin Sodium* (Pravachol*) 80 Mg Tablet, 80 MG PO HS 10/22/12 Aspirin (Aspirin) 81 Mg Tablet, 81 MG PO DAILY 10/22/12 Lisinopril* (Lisinopril*) 5 Mg Tablet, 5 MG PO DAILY 10/22/12 Carvedilol* (Carvedilol*) 6.25 Mg Tablet, 6.25 MG PO BID 10/22/12 Raltegravir Potassium* (Isentress*) 400 Mg Tablet, 400 MG PO BID 10/22/12 Medications Current Medications Sodium Chloride 1,000 ml @ 75 mls/hr [id number] IV Last administered on 03/11/19at 17:24; Admin Dose 75 MLS/HR; Start 03/11/19 at 16:09 IV Flush (NS 3 ml) 3 ml PER PROTOCOL IV ; Start 03/11/19 at 16:30 Ondansetron HCl (Zofran Inj) 4 mg Q6H PRN IV NAUSEA/VOMITING; Start 03/11/19 at 16:30 Hydromorphone HCl (Dilaudid) 1 mg Q4H PRN IV .SEVERE PAIN 7-10; Start 03/11/19 at 16:30 Pantoprazole (Protonix Tab) 40 mg DAILY@06 PO ; Start 03/12/19 at 06:00 Acyclovir (Zovirax) 400 mg DAILY PO ; Start 03/12/19 at 09:00 Calcium/Vitamin D (Oyster Shell/ Vit-D (500/200)) 1 tab BID PO ; Start 03/11/19 at 21:00 Cholecalciferol (Vitamin D) 1,000 unit DAILY PO ; Start 03/12/19 at 09:00 Acetaminophen/ Hydrocodone Bitart (Norfolk (7.5-325)) 1 tab Q4H PRN PO pain; Start 03/11/19 at 16:30 Mirtazapine (Remeron) 15 mg HS PO ; Start 03/11/19 at 21:00 Multivitamins Therapeutic (Theragran) 1 tab DAILY PO ; Start 03/12/19 at 09:00 Rosuvastatin Calcium (Crestor) 40 mg QHS PO ; Start 03/11/19 at 21:00 Miscellaneous Information 1 each DAILY PO ; Start 03/12/19 at 09:00; Status UNV Miscellaneous Information 300 mg BID PO ; Start 03/11/19 at 21:00; Status UNV Hydralazine HCl (Apresoline) 10 mg Q4H PRN IV ELEVATED SYSTOLIC BP; Start 03/11/19 at 16:30 Allergies: Coded Allergies: Sulfa (Sulfonamide Antibiotics) (Verified Allergy, Unknown, 03/11/19) Past Surgical History Past Surgical Hx: other (aortic valve replacement 2007) Social History Alcohol Use: none Smoking Status: Never smoker Drug Use: none Exam/Review of Systems Exam Vitals Vital Signs Date Temp Pulse Resp B/P (MAP) Pulse Ox O2 O2 Flow FiO2 Time Delivery Rate 03/11/19 Nasal 4.0 20:00 Cannula 03/11/19 81 20 131/81 97 18:45 (98) 03/11/19 98.6 16:00 Exam General: Awake, alert, in no acute distress, pleasant and cooperative Heart: regular rhythm Lungs: breathing comfortably, no tachypnea or dyspnea MUSCULOSKELETAL: Left lower extremity: Skin intact. Groin pain to logroll. Left lower extremity is shortened and externally rotated. Sensation intact to light touch in a sural, saphenous, deep peroneal, superficial peroneal, medial and lateral plantar nerve distribution. Motor is intact, patient able to dorsiflex and plantarflex ankle and extend and flex great toe. Dorsalis Pedis pulse +2, Brisk capillary refill. Compartments are soft. Calves non-tender to palpation bilaterally. Results Result Diagram: 03/11/19 1248 03/11/19 1248 Results 24hrs Laboratory Tests Test 03/11/19 12:48 White Blood Count 5.9 Red Blood Count 4.11 L Hemoglobin 11.9 #L Hematocrit 38.0 L Mean Corpuscular Volume 92.5 Mean Corpuscular Hemoglobin 29.0 Mean Corpuscular Hemoglobin Concent 31.3 L Red Cell Distribution Width 14.4 Platelet Count 148 Mean Platelet Volume 10.7 H Immature Granulocytes % 0.300 Neutrophils % 74.2 Lymphocytes % 17.0 Monocytes % 6.3 Eosinophils % 1.7 Basophils % 0.5 Nucleated Red Blood Cells % 0.0 Immature Granulocytes # 0.020 Neutrophils # 4.4 Lymphocytes # 1.0 Monocytes # 0.4 Eosinophils # 0.1 Basophils # 0.0 Nucleated Red Blood Cells # 0.0 Prothrombin Time 15.0 H Prothrombin Time Ratio 1.2 INR International Normalized Ratio 1.17 Activated Partial Thromboplast Time 35.9 H Sodium Level 141 Potassium Level 4.2 Chloride Level 103 Carbon Dioxide Level 31 Anion Gap 7 Blood Urea Nitrogen 11 Creatinine 0.68 Est Glomerular Filtrat Rate mL/min Glucose Level 110 Calcium Level 9.3 Troponin I < 0.012 HIV (1&2) Antibody REACTIVE H Imaging Imaging AP pelvis and AP lateral left hip personally reviewed. Demonstrate acute displ aced femoral neck fracture and varus. Medications Medication Current Medications Sodium Chloride 1,000 ml @ 75 mls/hr [id number] IV Last administered on 03/11/19at 17:24; Admin Dose 75 MLS/HR; Start 03/11/19 at 16:09 IV Flush (NS 3 ml) 3 ml PER PROTOCOL IV ; Start 03/11/19 at 16:30 Ondansetron HCl (Zofran Inj) 4 mg Q6H PRN IV NAUSEA/VOMITING; Start 03/11/19 at 16:30 Hydromorphone HCl (Dilaudid) 1 mg Q4H PRN IV .SEVERE PAIN 7-10; Start 03/11/19 at 16:30 Pantoprazole (Protonix Tab) 40 mg DAILY@06 PO ; Start 03/12/19 at 06:00 Acyclovir (Zovirax) 400 mg DAILY PO ; Start 03/12/19 at 09:00 Calcium/Vitamin D (Oyster Shell/ Vit-D (500/200)) 1 tab BID PO ; Start 03/11/19 at 21:00 Cholecalciferol (Vitamin D) 1,000 unit DAILY PO ; Start 03/12/19 at 09:00 Acetaminophen/ Hydrocodone Bitart ([place] (7.5-325)) 1 tab Q4H PRN PO pain; Start 03/11/19 at 16:30 Mirtazapine (Remeron) 15 mg HS PO ; Start 03/11/19 at 21:00 Multivitamins Therapeutic (Theragran) 1 tab DAILY PO ; Start 03/12/19 at 09:00 Rosuvastatin Calcium (Crestor) 40 mg QHS PO ; Start 03/11/19 at 21:00 Miscellaneous Information 1 each DAILY PO ; Start 03/12/19 at 09:00; Status UNV Miscellaneous Information 300 mg BID PO ; Start 03/11/19 at 21:00; Status UNV Hydralazine HCl (Apresoline) 10 mg Q4H PRN IV ELEVATED SYSTOLIC BP; Start 03/11/19 at 16:30 LEAH HAWKINS MD Mar 11, 2019 21:44
[2019-03-11] MEDS: HYDROCODONE/APAP (7.5/325) TAB PO PRN (23:51)
[2019-03-12] VITALS (44 sets, daily range): BP systolic 60–177; BP diastolic 31–164; PULSE 55–102; RESP 9–28
[2019-03-12] MEDS: PANTOPRAZOLE (EC) 40 MG TAB PO SCH (05:51)
[2019-03-12] MEDS: SOD CHLORIDE 0.9% 1,000 ML IV SCH ×2 (05:52→17:27)
[2019-03-12] MEDS: ACYCLOVIR 400 MG TAB PO SCH (09:00)
[2019-03-12] MEDS: CHOLECALCIFEROL 1,000 UNIT TAB PO SCH (09:00)
[2019-03-12] MEDS: CALCIUM/VITAMIN D (500/200) TAB PO SCH ×2 (09:00→20:53)
[2019-03-12] MEDS: MULTIVITAMINS THERAPEUTIC TAB PO SCH (09:00)
[2019-03-12] MEDS ORDERED: NON-FORMULARY/PATIENT OWN MED (Dolutegravir/Rilpivirine (Juluca 50-25 mg Tablet) 1 EACH) PO SCH (09:00)
--- NOTE | 2019-03-12 12:14 | RADRPT ---
Echocardiogram Report Patient Name: CELIA BRONSONPatient ID: [id number] : 1935 (84y 1m)Study Date: 03/12/2019 7:24:35 AM Gender: MAccession #: [id number] Tech: Anam Pederson DARY Location: [facility] Ref.Physician: EMI GROSSMAN Height(Cm): BSA: Weight(Kg): Quality: AdequateOrder Physician: EMI GROSSMAN Account #: Procedures: Echocardiographic Report: Transthoracic echocardiogram with complete 2D, M-Mode, and doppler examination. Indications: Aoritc Valve Replacement. Measurements: 2D/M Mode Doppler Measurement Value Normal Range Measurement Value Normal Range LVIDd 2D 3.7 [ 4.2 - 5.8 ] cm MARISELA VTI 1.4 [ 2.0 - 4.0 ] cm2 LVIDs 2D 2.2 [ 2.5 - 4.0 ] cm AV Mean Aden 2.5 [ 70.0 - 90.0 ] cm/sec LVPWd 2D 1.3 [ 0.6 - 1.0 ] cm AV Mean PG 28.0 [ 2.0 - 4.0 ] mmHg IVSd 2D 1.2 [ 0.6 - 1.0 ] cm AV VTI 75.3 cm AoR Diam 2D 3.7 [ 2.6 - 3.4 ] cm LVOT Mean Aden 0.9 [ 60.0 - 80.0 ] cm/sec EDV 2D 56.3 [ 62.0 - 150.0 ] ml LVOT Mean PG 4.0 [ 1.0 - 3.0 ] mmHg ESV 2D 15.3 [ 21.0 - 61.0 ] ml LVOT Peak Aden 1.2 [ 70.0 - 110.0 ] cm/sec EF 2D 72.8 [ 52.0 - 72.0 ] percent LVOT Peak PG 6.0 [ 2.0 - 6.0 ] mmHg LA Dimen 2D 2.7 [ 3.0 - 4.0 ] cm LVOT VTI 30.0 [ 20.0 - 30.0 ] cm LVOT Diam 2.1 [ 2.3 - 2.9 ] cm MV E Peak Aden 0.9 [ 60.0 - 130.0 ] cm/sec MV A Peak Aden 1.4 [ 100.0 - 120.0 ] cm/sec MV E/A 0.6 [ 0.8 - 1.5 ] ratio MV Decel Time 229 [ 104 - 258 ] msec Lat E` Aden 0.1 [ 10.0 - 15.0 ] cm/sec Lateral E/E` 11.6 [ 1.0 - 2.0 ] ratio MV E/A 0.6 [ 0.8 - 1.5 ] ratio TR Peak Aden 3.1 [ 100.0 - 280.0 ] cm/sec TR Peak PG 38.0 mmHg RVSP 46.0 [ 10.0 - 36.0 ] mmHg RA Pressure 8.0 mmHg Findings: Left Ventricle: Hyperdynamic left ventricular systolic function. Normal left ventricular cavity size. Mild concentric left ventricular hypertrophy. Ejection fraction is visually estimated at 70 %. Tissue Doppler/Mitral Doppler indices are consistent with impaired relaxation (Stage I diastolic dysfunction). Right Ventricle: Normal right ventricular size. Normal right ventricular systolic function. Left Atrium: The left atrium is normal in size. Right Atrium: The right atrium is normal in size. Mitral Valve: Mitral valve leaflets appear mildly thickened. Mild mitral annular calcification. There is trace to mild mitral valve regurgitation. Aortic Valve: Aortic Valve Bio Prosthesis. Aortic valve Max velocity 3.54 m/sec. Max PG 50.20 mmHg. Mean PG 28.00 mmHg. Tricuspid Valve: Normal appearance of the tricuspid valve. The estimated Peak RVSP is 46 mmHg. There is mild tricuspid regurgitation. Pulmonic Valve: Pulmonic valve not well visualized. Pericardium: Trivial pericardial effusion. Aorta: Normal aortic root. IVC: Normal size and no respiratory collapse consistent with elevated right atrial pressure. Conclusions: Mild concentric left ventricular hypertrophy with hyperdynamic systolic function. Grade 1 diastolic dysfunction. Trace-mild mitral regurgitation. Bioprosthetic aortic valve with moderately increased gradients. Mild tricuspid regurgitation and moderate pulmonary hypertension. Noncollapsing IVC suggests elevated right atrial pressure. Electronically Signed By: Madonna Bass 2019-03-12 12:13:54 PDT
[2019-03-12] MEDS: HYDROmorphONE 0.5 MG/0.5 ML SYG IV PRN ×2 (12:51→23:22)
--- NOTE | 2019-03-12 15:25 | PN ---
Date/Time of Note Date/Time of Note DATE: 03/12/19 TIME: 15:21 Assessment/Plan VTE Prophylaxis Risk score (from Ns)>0 risk: 11 SCD applied (from Ns): Yes Pharmacological prophylaxis: NA/contraindicated Pharm contraindication: bleeding Lines/Catheters IV Catheter Type (from Nrsg): Peripheral IV Urinary Cath still in place: Yes Reason Cath still needed: other (indicate) (immobile) Assessment/Plan Assessment/Plan 84 yo man history of aortic valve replacement, HIV presents with L hip fracture and subdural hematoma after fall #Subdural hematoma - Dr. Gregg consulted - Repeat head CT shows no significant change in bleed. - Hydralazine prn SBP>160 unless neurosurg wants lower goal. - Will consider prophylactic anticoagulation after 48 hours. - No antiplatelet or therapeutic anticoagulation for at least 1 week. #L hip fracture - Dr. Claudio consulted - Plan for L hip total arthroplasty - Per cardiology, medically optimized for surgery. - [place], IV dilaudid for pain control - Bedrest #Aortic valve replacement - Patient does report some dyspnea on exertion recently, otherwise no major CHF or ACS symptoms. - Will get TTE - Dr. Bass consulted #HIV - Continue home antiretrovirals - Will check viral load and CD4 count - No signs or symptoms of acute HIV or opportunistic infections. #Chronic lower back pain - Unfortunately will be immobilized until hip replacement - Holding home NSAID for intracranial bleed - Opioids as above. #Dyslipidemia - Cont statin #Osteoporosis - Cont vitamin D DVT: SCDs only GI: Protonix PO Result Diagram: 03/12/19 0453 03/12/19 0453 Subjective 24 Hr Interval Summary Free Text/Dictation No acute overnight events. Patient slightly more sleepy but arousable today. Exam/Review of Systems Exam Vitals Vital Signs Date Temp Pulse Resp B/P (MAP) Pulse Ox O2 O2 Flow FiO2 Time Delivery Rate 03/12/19 81 16 128/62 94 13:00 (84) 03/12/19 98.9 Nasal 2.0 12:00 Cannula Intake and Output 03/11/19 03/11/19 03/12/19 1515:00 23:00 07:00 IntakeIntake Total 500 ml 545 ml 600 ml OutputOutput Total 675 ml 195 ml BalanceBalance 500 ml -130 ml 405 ml Exam Gen: Robust appearing elderly man awake supine in bed, comfortable appearing. Eyes: Pupils minimally reactive to light bilaterally. No icterus HEENT: Dry mucous membranes, clear oropharynx Neck: No lymphadenopathy, supple, nontender. Card: Regular rate and rhythm, 3/6 systolic ejection murmur loudest at RUSB and LUSB. Chest: well healed sternotomy scar Pulm: Clear to auscultation bilaterally Abd: Soft, nontender, nondistended. Hypoactive bowel sounds. Ext: L hip pain with L foot torsion. Hip is not very tender to palpation, no hematoma. Peripheral pulses about 1+. Trace pedal edema bilaterally. Skin: warm, dry, well perfused. Results Results 24hrs Laboratory Tests Test 03/12/19 04:52 03/12/19 04:53 Hemoglobin A1c 5.5 White Blood Count 4.7 #L Red Blood Count 3.73 L Hemoglobin 10.7 L Hematocrit 34.4 L Mean Corpuscular Volume 92.2 Mean Corpuscular Hemoglobin 28.7 L Mean Corpuscular Hemoglobin Concent 31.1 L Red Cell Distribution Width 14.6 H Platelet Count 122 L Mean Platelet Volume 11.1 H Immature Granulocytes % 0.400 Neutrophils % 61.9 Lymphocytes % 25.6 Monocytes % 8.3 Eosinophils % 3.2 Basophils % 0.6 Nucleated Red Blood Cells % 0.0 Immature Granulocytes # 0.020 Neutrophils # 2.9 Lymphocytes # 1.2 Monocytes # 0.4 Eosinophils # 0.2 Basophils # 0.0 Nucleated Red Blood Cells # 0.0 Sodium Level 140 Potassium Level 3.9 Chloride Level 104 Carbon Dioxide Level 28 Anion Gap 8 Blood Urea Nitrogen 11 Creatinine 0.66 Est Glomerular Filtrat Rate mL/min Glucose Level 85 Calcium Level 8.4 Phosphorus Level 3.4 Magnesium Level 1.8 Total Bilirubin 0.6 Direct Bilirubin 0.00 Indirect Bilirubin 0.6 Aspartate Amino Transf (AST/SGOT) 33 Alanine Aminotransferase (ALT/SGPT) 25 Alkaline Phosphatase 53 Total Protein 6.1 Albumin 3.3 Globulin 2.80 Albumin/Globulin Ratio 1.17 Triglycerides Level 78 Cholesterol Level 108 LDL Cholesterol, Calculated 58 HDL Cholesterol 34 Cholesterol/HDL Ratio 3.1 Thyroid Stimulating Hormone (TSH) 0.321 L Medications Medication Current Medications Sodium Chloride 1,000 ml @ 75 mls/hr [id number] IV Last administered on 03/12/19at 05:52; Admin Dose 75 MLS/HR; Start 6/27/19 at 16:09 IV Flush (NS 3 ml) 3 ml PER PROTOCOL IV ; Start 03/11/19 at 16:30 Ondansetron HCl (Zofran Inj) 4 mg Q6H PRN IV NAUSEA/VOMITING; Start 03/11/19 at 16:30 Hydromorphone HCl (Dilaudid) 1 mg Q4H PRN IV .SEVERE PAIN 7-10 Last administered on 03/12/19at 12:51; Admin Dose 1 MG; Start 03/11/19 at 16:30 Pantoprazole (Protonix Tab) 40 mg DAILY@06 PO Last administered on 03/12/19at 05:51; Admin Dose 40 MG; Start 03/12/19 at 06:00 Acyclovir (Zovirax) 400 mg DAILY PO ; Start 03/12/19 at 09:00 Calcium/Vitamin D (Oyster Shell/ Vit-D (500/200)) 1 tab BID PO ; Start 03/11/19 at 21:00 Cholecalciferol (Vitamin D) 1,000 unit DAILY PO ; Start 03/12/19 at 09:00 Acetaminophen/ Hydrocodone Bitart ([place] (7.5-325)) 1 tab Q4H PRN PO pain Last administered on 03/11/19at 23:51; Admin Dose 1 TAB; Start 03/11/19 at 16:30 Mirtazapine (Remeron) 15 mg HS PO ; Start 03/11/19 at 21:00 Multivitamins Therapeutic (Theragran) 1 tab DAILY PO ; Start 03/12/19 at 09:00 Rosuvastatin Calcium (Crestor) 40 mg QHS PO ; Start 03/11/19 at 21:00 Miscellaneous Information 1 each DAILY PO ; Start 03/12/19 at 09:00; Status UNV Miscellaneous Information 300 mg BID PO ; Start 03/11/19 at 21:00; Status UNV Hydralazine HCl (Apresoline) 10 mg Q4H PRN IV ELEVATED SYSTOLIC BP; Start 03/11/19 at 16:30 Miscellaneous Information (*Order Clarification Bulletin) MEDICATION REQUIRES CLARIFICATI... Q8H XX ; Start 03/12/19 at 09:00 EMI GROSSMAN MD Mar 12, 2019 15:25
--- NOTE | 2019-03-12 19:09 | CONS ---
Assessment/Plan Assessment/Plan Problems: (1) Subdural hemorrhage Status: Acute Assessment/Plan (Daily) The patient has an acute subdural hematoma s/p fall; this does not require any operative intervention at the present time but is a strong relative contraindication for anticoagulation. The patient also has a femur fracture for which operative intervention is indicated. I spoke to the primary and the ortho pedist regarding the same; in my opinion, it would be best to defer surgery until such time as the hematoma is stable (likely demonstrated on CT in am). Although anticoagulation should be avoided as much possible, 48 hours after the last stable CT anticoagulation could be considered, if standard of care with regard to planned orthopedic intervention. Consultation Date/Type/Reason Admit Date/Time Mar 11, 2019 at 14:10 Date of Consultation: Mar 12, 2019 Type of Consult neurosurgery Reason for Consultation left subdural hematoma Date/Time of Note DATE: 03/12/19 TIME: 19:00 Hx of Present Illness 84 year old s/p GLF; no history of antiplatelet therapy or anticoagulation Past Medical History Home Meds Reported Medications Hydrocodone/Acetaminophen ([place] 7.5-325 Tablet) 1 Each Tablet, 1 EACH PO Q6H PRN for PRN, TAB 03/11/19 Doxepin Hcl* (Doxepin Hcl*) 10 Mg Capsule, 10 MG PO HS, CAP 03/11/19 Alendronate Sodium* (Fosamax*) 70 Mg Tablet, 70 MG PO Q7D, #4 TAB 03/11/19 Maraviroc (Selzentry) 300 Mg Tablet, 300 MG PO BID, TAB 03/11/19 Rosuvastatin Calcium* (Crestor*) 40 Mg Tablet, 40 MG PO QHS, #30 TAB 03/11/19 Mirtazapine* (Mirtazapine*) 15 Mg Tablet, 15 MG PO HS, TAB 03/11/19 Dolutegravir/Rilpivirine ([place] 50-25 mg Tablet) 1 Each Tablet, 1 EACH PO DAILY, TAB 03/11/19 Acyclovir* (Acyclovir*) 400 Mg Tablet, 400 MG PO DAILY, TAB 03/11/19 Meloxicam* (Mobic*) 15 Mg Tablet, 15 MG PO DAILY, #30 TAB 03/11/19 Cyanocobalamin (Vitamin B-12) (Cyanocobalamin Injection) 1,000 Mcg/1 Ml Vial, 1000 MCG IJ Q28D, VIAL 03/11/19 Calcium Carbonate/Vitamin D3 (OYSTER SHELL 500 MG + VIT D TB) 1 Each Tablet, 1 EACH PO BID, TAB 03/11/19 Cholecalciferol* (Vitamin D3*) 1,000 Unit Tablet, 1000 UNIT PO DAILY, TAB 03/11/19 Multivitamins* (Theragran*) 1 Tab Tab, 1 TAB PO DAILY, TAB 03/11/19 Discontinued Reported Medications Etravirine (INTELENCE) 200 Mg Tablet, 200 MG PO BID 09/16/14 [Intelence] No Conflict Check, 200 MG BID 10/25/12 Selenium Sulfide (Selenium Sulfide) 180 Ml Shampoo, 180 ML TP 10/22/12 Olopatadine* (Patanol* Ophth) 5 Ml Drops, 5 ML OP TID 10/22/12 Sildenafil Citrate* (Viagra*) 50 Mg Tablet, 50 MG PO PRN 10/22/12 Diphenoxylate Hcl-Atropine (Lomotil) 1 Tab Tablet, 1 TAB PO PRN 10/22/12 Testosterone Cypionate* (Depo-Testosterone*) 200 Mg/Ml Vial, 200 MG IM every 10 days 10/22/12 Hydrocodone Bit/Acetaminophen (Vicodin 5/500 Tablet) 1 Tab Tablet, 1 TAB PO Q4 PRN 10/22/12 Diazepam* (Diazepam*) 10 Mg Tablet, 10 MG PO HS 10/22/12 Mirtazapine* (Remeron* Soltab) 15 Mg/Tab Tab.rapdis, 15 MG PO HS 10/22/12 valACYclovir Hcl* (Valtrex*) 500 Mg Tablet, 500 MG PO DAILY 10/22/12 Fenofibrate, Micronized* (Fenofibrate*) 160 Mg Tablet, 160 MG PO DAILY 10/22/12 Pravastatin Sodium* (Pravachol*) 80 Mg Tablet, 80 MG PO HS 10/22/12 Aspirin (Aspirin) 81 Mg Tablet, 81 MG PO DAILY 10/22/12 Lisinopril* (Lisinopril*) 5 Mg Tablet, 5 MG PO DAILY 10/22/12 Carvedilol* (Carvedilol*) 6.25 Mg Tablet, 6.25 MG PO BID 10/22/12 Raltegravir Potassium* (Isentress*) 400 Mg Tablet, 400 MG PO BID 10/22/12 Medications Current Medications Sodium Chloride 1,000 ml @ 75 mls/hr [id number] IV Last administered on 03/12/19at 05:52; Admin Dose 75 MLS/HR; Start 03/11/19 at 16:09 IV Flush (NS 3 ml) 3 ml PER PROTOCOL IV ; Start 03/11/19 at 16:30 Ondansetron HCl (Zofran Inj) 4 mg Q6H PRN IV NAUSEA/VOMITING; Start 03/11/19 at 16:30 Hydromorphone HCl (Dilaudid) 1 mg Q4H PRN IV .SEVERE PAIN 7-10 Last admini stered on 03/12/19at 12:51; Admin Dose 1 MG; Start 03/11/19 at 16:30 Pantoprazole (Protonix Tab) 40 mg DAILY@06 PO Last administered on 03/12/19at 05:51; Admin Dose 40 MG; Start 03/12/19 at 06:00 Acyclovir (Zovirax) 400 mg DAILY PO ; Start 03/12/19 at 09:00 Calcium/Vitamin D (Oyster Shell/ Vit-D (500/200)) 1 tab BID PO ; Start 03/11/19 at 21:00 Cholecalciferol (Vitamin D) 1,000 unit DAILY PO ; Start 03/12/19 at 09:00 Acetaminophen/ Hydrocodone Bitart ([place] (7.5-325)) 1 tab Q4H PRN PO pain Last administered on 03/11/19at 23:51; Admin Dose 1 TAB; Start 03/11/19 at 16:30 Mirtazapine (Remeron) 15 mg HS PO ; Start 03/11/19 at 21:00 Multivitamins Therapeutic (Theragran) 1 tab DAILY PO ; Start 03/12/19 at 09:00 Rosuvastatin Calcium (Crestor) 40 mg QHS PO ; Start 03/11/19 at 21:00 Miscellaneous Information 1 each DAILY PO ; Start 03/12/19 at 09:00; Status UNV Miscellaneous Information 300 mg BID PO ; Start 03/11/19 at 21:00; Status UNV Hydralazine HCl (Apresoline) 10 mg Q4H PRN IV ELEVATED SYSTOLIC BP; Start 03/11/19 at 16:30 Miscellaneous Information (*Order Clarification Bulletin) MEDICATION REQUIRES CLARIFICATI... Q8H XX ; Start 03/12/19 at 09:00 Allergies: Coded Allergies: Sulfa (Sulfonamide Antibiotics) (Verified Allergy, Unknown, 03/11/19) Past Surgical History Past Surgical Hx: other (aortic valve replacement 2007) Social History Alcohol Use: none Smoking Status: Never smoker Drug Use: none Exam/Review of Systems Exam Vitals Vital Signs Date Temp Pulse Resp B/P (MAP) Pulse Ox O2 O2 Flow FiO2 Time Delivery Rate 03/12/19 84 9 150/76 98 18:00 (100) 03/12/19 Nasal 2.0 16:00 Cannula 03/12/19 98.9 12:00 Intake and Output 03/11/19 03/11/19 03/12/19 1515:00 23:00 07:00 IntakeIntake Total 500 ml 545 ml 600 ml OutputOutput Total 675 ml 195 ml BalanceBalance 500 ml -130 ml 405 ml Results Result Diagram: 03/12/19 0453 03/12/19 0453 Results 24hrs Laboratory Tests Test 03/12/19 04:52 03/12/19 04:53 Hemoglobin A1c 5.5 White Blood Count 4.7 #L Red Blood Count 3.73 L Hemoglobin 10.7 L Hematocrit 34.4 L Mean Corpuscular Volume 92.2 Mean Corpuscular Hemoglobin 28.7 L Mean Corpuscular Hemoglobin Concent 31.1 L Red Cell Distribution Width 14.6 H Platelet Count 122 L Mean Platelet Volume 11.1 H Immature Granulocytes % 0.400 Neutrophils % 61.9 Lymphocytes % 25.6 Monocytes % 8.3 Eosinophils % 3.2 Basophils % 0.6 Nucleated Red Blood Cells % 0.0 Immature Granulocytes # 0.020 Neutrophils # 2.9 Lymphocytes # 1.2 Monocytes # 0.4 Eosinophils # 0.2 Basophils # 0.0 Nucleated Red Blood Cells # 0.0 Sodium Level 140 Potassium Level 3.9 Chloride Level 104 Carbon Dioxide Level 28 Anion Gap 8 Blood Urea Nitrogen 11 Creatinine 0.66 Est Glomerular Filtrat Rate mL/min Glucose Level 85 Calcium Level 8.4 Phosphorus Level 3.4 Magnesium Level 1.8 Total Bilirubin 0.6 Direct Bilirubin 0.00 Indirect Bilirubin 0.6 Aspartate Amino Transf (AST/SGOT) 33 Alanine Aminotransferase (ALT/SGPT) 25 Alkaline Phosphatase 53 Total Protein 6.1 Albumin 3.3 Globulin 2.80 Albumin/Globulin Ratio 1.17 Triglycerides Level 78 Cholesterol Level 108 LDL Cholesterol, Calculated 58 HDL Cholesterol 34 Cholesterol/HDL Ratio 3.1 Thyroid Stimulating Hormone (TSH) 0.321 L Imaging Imaging I personally reviewed CT of the brain from yesterday and today; these studies show 1) a small left posterior frontal vs parietal extraaxial acute hematoma with minimal local mass effect, and 2) a left frontal extraaxial acute hemnatoma only 2-3 mm in maximal thickness without mass effect. The repeat study was read as having shown a slight increase in the mass effec tand or size of the hematoma, but to my eye there is not a clinically significant difference. Medications Medication Current Medications Sodium Chloride 1,000 ml @ 75 mls/hr [id number] IV Last administered on 03/12/19at 05:52; Admin Dose 75 MLS/HR; Start 03/11/19 at 16:09 IV Flush (NS 3 ml) 3 ml PER PROTOCOL IV ; Start 03/11/19 at 16:30 Ondansetron HCl (Zofran Inj) 4 mg Q6H PRN IV NAUSEA/VOMITING; Start 03/11/19 at 16:30 Hydromorphone HCl (Dilaudid) 1 mg Q4H PRN IV .SEVERE PAIN 7-10 Last administered on 03/12/19at 12:51; Admin Dose 1 MG; Start 03/11/19 at 16:30 Pantoprazole (Protonix Tab) 40 mg DAILY@06 PO Last administered on 03/12/19at 05:51; Admin Dose 40 MG; Start 03/12/19 at 06:00 Acyclovir (Zovirax) 400 mg DAILY PO ; Start 03/12/19 at 09:00 Calcium/Vitamin D (Oyster Shell/ Vit-D (500/200)) 1 tab BID PO ; Start 03/11/19 at 21:00 Cholecalciferol (Vitamin D) 1,000 unit DAILY PO ; Start 03/12/19 at 09:00 Acetaminophen/ Hydrocodone Bitart ([place] (7.5-325)) 1 tab Q4H PRN PO pain Last administered on 03/11/19at 23:51; Admin Dose 1 TAB; Start 03/11/19 at 16:30 Mirtazapine (Remeron) 15 mg HS PO ; Start 03/11/19 at 21:00 Multivitamins Therapeutic (Theragran) 1 tab DAILY PO ; Start 03/12/19 at 09:00 Rosuvastatin Calcium (Crestor) 40 mg QHS PO ; Start 03/11/19 at 21:00 Miscellaneous Information 1 each DAILY PO ; Start 03/12/19 at 09:00; Status UNV Miscellaneous Information 300 mg BID PO ; Start 03/11/19 at 21:00; Status UNV Hydralazine HCl (Apresoline) 10 mg Q4H PRN IV ELEVATED SYSTOLIC BP; Start 03/11/19 at 16:30 Miscellaneous Information (*Order Clarification Bulletin) MEDICATION REQUIRES CLARIFICATI... Q8H XX ; Start 03/12/19 at 09:00 NILS HERNDON MD Mar 12, 2019 19:09
[2019-03-12] MEDS: MIRTAZAPINE 15 MG TAB PO SCH (20:53)
[2019-03-12] MEDS: ROSUVASTATIN CALCIUM 40 MG TABLET PO SCH (20:53)
[2019-03-12] MEDS: HYDROCODONE/APAP (7.5/325) TAB PO PRN (21:36)
[2019-03-13] VITALS (57 sets, daily range): BP systolic 104–162; BP diastolic 43–106; PULSE 62–119; RESP 9–33
[2019-03-13] MEDS: SOD CHLORIDE 0.9% 1,000 ML IV SCH (05:58)
[2019-03-13] MEDS: PANTOPRAZOLE (EC) 40 MG TAB PO SCH (05:59)
[2019-03-13] MEDS: HYDROCODONE/APAP (7.5/325) TAB PO PRN (08:12)
[2019-03-13] MEDS: MULTIVITAMINS THERAPEUTIC TAB PO SCH (08:44)
[2019-03-13] MEDS: ACYCLOVIR 400 MG TAB PO SCH (08:44)
[2019-03-13] MEDS: CHOLECALCIFEROL 1,000 UNIT TAB PO SCH (08:44)
[2019-03-13] MEDS: CALCIUM/VITAMIN D (500/200) TAB PO SCH ×2 (08:44→21:00)
[2019-03-13] MEDS ORDERED: ACETAMINOPHEN 325 MG TAB PO PRN (09:00)
--- NOTE | 2019-03-13 09:08 | PN ---
Date/Time of Note Date/Time of Note DATE: 03/13/19 TIME: 08:59 Assessment/Plan VTE Prophylaxis Risk score (from Ns)>0 risk: 10 SCD applied (from Ns): Yes Pharmacological prophylaxis: NA/contraindicated Pharm contraindication: bleeding Lines/Catheters IV Catheter Type (from Nrsg): Peripheral IV Urinary Cath still in place: Yes Reason Cath still needed: other (indicate) (immobile) Assessment/Plan Assessment/Plan 84 yo man history of aortic valve replacement, HIV presents with L hip fracture and subdural hematoma after fall #Subdural hematoma - Dr. Gregg consulted - Repeat head CT shows no significant change in bleed. - Hydralazine prn SBP>160 unless neurosurg wants lower goal. - Will consider prophylactic anticoagulation after 48 hours. - No antiplatelet or therapeutic anticoagulation for at least 1 week. #L hip fracture - Dr. Claudio consulted - Plan for L hip total arthroplasty - Per cardiology, medically optimized for surgery. - [place], IV dilaudid for pain control - PT after surgery #Aortic valve replacement - Patient does report some dyspnea on exertion recently, otherwise no major CHF or ACS symptoms. - Dr. Bass consulted #HIV 1 infection, chronic. - Continue home antiretrovirals - Viral load undetectable. Pending CD4 count. - No signs or symptoms of acute HIV or opportunistic infections. #Chronic lower back pain - Unfortunately will be immobilized until hip replacement - Holding home NSAID for intracranial bleed - Opioids as above. #Dyslipidemia - Cont statin #Osteoporosis - Cont vitamin D DVT: SCDs only GI: Protonix PO Result Diagram: 03/13/19 0531 03/13/19 0531 Subjective 24 Hr Interval Summary Free Text/Dictation The patient is a little frustrated that surgery was delayed and none of the staff speaks fluent [place]ian. Otherwise doing okay, no new complaints. Exam/Review of Systems Exam Vitals Vital Signs Date Temp Pulse Resp B/P (MAP) Pulse Ox O2 O2 Flow FiO2 Time Delivery Rate 03/13/19 99.2 08:45 03/13/19 83 08:00 03/13/19 18 136/75 98 Nasal 4.0 08:00 (95) Cannula Intake and Output 03/12/19 03/12/19 03/13/19 1515:00 23:00 07:00 IntakeIntake Total 75 ml 720 ml 525 ml OutputOutput Total 560 ml 355 ml 370 ml BalanceBalance -485 ml 365 ml 155 ml Exam Gen: Robust appearing elderly man awake supine in bed, comfortable appearing. Eyes: Pupils minimally reactive to light bilaterally. No icterus HEENT: Dry mucous membranes, clear oropharynx Neck: No lymphadenopathy, supple, nontender. Card: Regular rate and rhythm, 3/6 systolic ejection murmur loudest at RUSB and LUSB. Chest: well healed sternotomy scar Pulm: Clear to auscultation bilaterally Abd: Soft, nontender, nondistended. Hypoactive bowel sounds. Ext: L hip pain with L foot torsion. Hip is not very tender to palpation, no hematoma. Peripheral pulses about 1+. Trace pedal edema bilaterally. Skin: warm, dry, well perfused. Results Results 24hrs Laboratory Tests Test 03/12/19 21:00 03/13/19 05:31 Sodium Level 137 139 Potassium Level 4.3 4.3 Chloride Level 99 100 Carbon Dioxide Level 30 32 H Anion Gap 8 7 Blood Urea Nitrogen 16 19 Creatinine 0.72 0.79 Est Glomerular Filtrat Rate mL/min Glucose Level 166 118 # Calcium Level 8.4 8.2 L Magnesium Level 1.8 1.8 White Blood Count 5.6 Red Blood Count 3.73 L Hemoglobin 10.9 L Hematocrit 34.4 L Mean Corpuscular Volume 92.2 Mean Corpuscular Hemoglobin 29.2 Mean Corpuscular Hemoglobin Concent 31.7 L Red Cell Distribution Width 14.1 Platelet Count 126 L Mean Platelet Volume 10.7 H Immature Granulocytes % 0.200 Neutrophils % 67.5 Lymphocytes % 18.5 Monocytes % 10.4 Eosinophils % 3.0 Basophils % 0.4 Nucleated Red Blood Cells % 0.0 Immature Granulocytes # 0.010 Neutrophils # 3.8 Lymphocytes # 1.0 Monocytes # 0.6 Eosinophils # 0.2 Basophils # 0.0 Nucleated Red Blood Cells # 0.0 Prothrombin Time 16.1 H Prothrombin Time Ratio 1.3 INR International Normalized Ratio 1.28 Activated Partial Thromboplast Time 39.8 H Medications Medication Current Medications Sodium Chloride 1,000 ml @ 75 mls/hr [id number] IV Last administered on 03/13/19at 05:58; Admin Dose 75 MLS/HR; Start 03/11/19 at 16:09 IV Flush (NS 3 ml) 3 ml PER PROTOCOL IV ; Start 03/11/19 at 16:30 Ondansetron HCl (Zofran Inj) 4 mg Q6H PRN IV NAUSEA/VOMITING; Start 03/11/19 at 16:30 Hydromorphone HCl (Dilaudid) 1 mg Q4H PRN IV .SEVERE PAIN 7-10 Last administered on 03/12/19at 23:22; Admin Dose 1 MG; Start 03/11/19 at 16:30 Pantoprazole (Protonix Tab) 40 mg DAILY@06 PO Last administered on 03/13/19at 05:59; Admin Dose 40 MG; Start 03/12/19 at 06:00 Acyclovir (Zovirax) 400 mg DAILY PO ; Start 03/12/19 at 09:00 Calcium/Vitamin D (Oyster Shell/ Vit-D (500/200)) 1 tab BID PO Last administered on 03/12/19at 20:53; Admin Dose 1 TAB; Start 03/11/19 at 21:00 Cholecalciferol (Vitamin D) 1,000 unit DAILY PO ; Start 03/12/19 at 09:00 Acetaminophen/ Hydrocodone Bitart ([place] (7.5-325)) 1 tab Q4H PRN PO pain Last administered on 03/13/19at 08:12; Admin Dose 1 TAB; Start 03/11/19 at 16:30 Mirtazapine (Remeron) 15 mg HS PO Last administered on 03/12/19at 20:53; Admin Dose 15 MG; Start 03/11/19 at 21:00 Multivitamins Therapeutic (Theragran) 1 tab DAILY PO ; Start 03/12/19 at 09:00 Rosuvastatin Calcium (Crestor) 40 mg QHS PO Last administered on 03/12/19at 20:53; Admin Dose 40 MG; Start 03/11/19 at 21:00 Miscellaneous Information 1 each DAILY PO ; Start 03/12/19 at 09:00; Status UNV Miscellaneous Information 300 mg BID PO ; Start 03/11/19 at 21:00; Status UNV Hydralazine HCl (Apresoline) 10 mg Q4H PRN IV ELEVATED SYSTOLIC BP; Start 03/11/19 at 16:30 Miscellaneous Information (*Order Clarification Bulletin) MEDICATION REQUIRES CLARIFICATI... Q8H XX ; Start 03/12/19 at 09:00 Acetaminophen (Tylenol Tab) 650 mg Q6H PRN PO MILD PAIN(1-3)OR ELEVATED TEMP; Start 03/13/19 at 09:00; Status UNV EMI GROSSMAN MD Mar 13, 2019 09:08
--- NOTE | 2019-03-13 09:10 | CONS ---
Assessment/Plan Assessment/Plan Assessment/Plan (Daily) 84 yo male with L SDH after trauma. The subdural is stable on this AM's imaging by my measurement. - Ok for orthopaedic surgery today - Please keep systolic BP < 160mmHg - Please avoid systemic anticoagulation (sq heparin etc.) for 2 more days Consultation Date/Type/Reason Admit Date/Time Mar 11, 2019 at 14:10 Initial Consult Date 03/12/19 Type of Consult Neurosurgery Requesting Provider: EMI GROSSMAN MD Date/Time of Note DATE: 03/13/19 TIME: 09:05 24 HR Interval Summary Free Text/Dictation Pt with small L SDH stable on repeat exam. Exam/Review of Systems Exam Vitals Vital Signs Date Temp Pulse Resp B/P (MAP) Pulse Ox O2 O2 Flow FiO2 Time Delivery Rate 03/13/19 99.2 08:45 03/13/19 83 08:00 03/13/19 18 136/75 98 Nasal 4.0 08:00 (95) Cannula Intake and Output 03/12/19 03/12/19 03/13/19 1515:00 23:00 07:00 IntakeIntake Total 75 ml 720 ml 525 ml OutputOutput Total 560 ml 355 ml 370 ml BalanceBalance -485 ml 365 ml 155 ml Exam Ox3 5/5 except limited by hip fx Results Result Diagram: 03/13/19 0531 03/13/19 0531 Results 24hrs Laboratory Tests Test 03/12/19 21:00 03/13/19 05:31 Sodium Level 137 139 Potassium Level 4.3 4.3 Chloride Level 99 100 Carbon Dioxide Level 30 32 H Anion Gap 8 7 Blood Urea Nitrogen 16 19 Creatinine 0.72 0.79 Est Glomerular Filtrat Rate mL/min Glucose Level 166 118 # Calcium Level 8.4 8.2 L Magnesium Level 1.8 1.8 White Blood Count 5.6 Red Blood Count 3.73 L Hemoglobin 10.9 L Hematocrit 34.4 L Mean Corpuscular Volume 92.2 Mean Corpuscular Hemoglobin 29.2 Mean Corpuscular Hemoglobin Concent 31.7 L Red Cell Distribution Width 14.1 Platelet Count 126 L Mean Platelet Volume 10.7 H Immature Granulocytes % 0.200 Neutrophils % 67.5 Lymphocytes % 18.5 Monocytes % 10.4 Eosinophils % 3.0 Basophils % 0.4 Nucleated Red Blood Cells % 0.0 Immature Granulocytes # 0.010 Neutrophils # 3.8 Lymphocytes # 1.0 Monocytes # 0.6 Eosinophils # 0.2 Basophils # 0.0 Nucleated Red Blood Cells # 0.0 Prothrombin Time 16.1 H Prothrombin Time Ratio 1.3 INR International Normalized Ratio 1.28 Activated Partial Thromboplast Time 39.8 H Medications Medication Current Medications Sodium Chloride 1,000 ml @ 75 mls/hr [id number] IV Last administered on 03/13/19at 05:58; Admin Dose 75 MLS/HR; Start 03/11/19 at 16:09 IV Flush (NS 3 ml) 3 ml PER PROTOCOL IV ; Start 03/11/19 at 16:30 Ondansetron HCl (Zofran Inj) 4 mg Q6H PRN IV NAUSEA/VOMITING; Start 03/11/19 at 16:30 Hydromorphone HCl (Dilaudid) 1 mg Q4H PRN IV .SEVERE PAIN 7-10 Last administered on 03/12/19at 23:22; Admin Dose 1 MG; Start 03/11/19 at 16:30 Pantoprazole (Protonix Tab) 40 mg DAILY@06 PO Last administered on 03/13/19at 05:59; Admin Dose 40 MG; Start 03/12/19 at 06:00 Acyclovir (Zovirax) 400 mg DAILY PO ; Start 03/12/19 at 09:00 Calcium/Vitamin D (Oyster Shell/ Vit-D (500/200)) 1 tab BID PO Last admini stered on 03/12/19at 20:53; Admin Dose 1 TAB; Start 03/11/19 at 21:00 Cholecalciferol (Vitamin D) 1,000 unit DAILY PO ; Start 03/12/19 at 09:00 Acetaminophen/ Hydrocodone Bitart ([place] (7.5-325)) 1 tab Q4H PRN PO pain Last administered on 03/13/19at 08:12; Admin Dose 1 TAB; Start 03/11/19 at 16:30 Mirtazapine (Remeron) 15 mg HS PO Last administered on 03/12/19at 20:53; Admin Dose 15 MG; Start 03/11/19 at 21:00 Multivitamins Therapeutic (Theragran) 1 tab DAILY PO ; Start 03/12/19 at 09:00 Rosuvastatin Calcium (Crestor) 40 mg QHS PO Last administered on 03/12/19at 20:53; Admin Dose 40 MG; Start 03/11/19 at 21:00 Miscellaneous Information 1 each DAILY PO ; Start 03/12/19 at 09:00; Status UNV Miscellaneous Information 300 mg BID PO ; Start 03/11/19 at 21:00; Status UNV Hydralazine HCl (Apresoline) 10 mg Q4H PRN IV ELEVATED SYSTOLIC BP; Start 03/11/19 at 16:30 Miscellaneous Information (*Order Clarification Bulletin) MEDICATION REQUIRES CLARIFICATI... Q8H XX ; Start 03/12/19 at 09:00 Acetaminophen (Tylenol Tab) 650 mg Q6H PRN PO MILD PAIN(1-3)OR ELEVATED TEMP; Start 03/13/19 at 09:00; Status UNV ZELALEM BATES MD Mar 13, 2019 09:10
[2019-03-13] MEDS ORDERED: TRANEXAMIC ACID 1GM/100ML(PMX) 200 ML ONE (13:58)
--- NOTE | 2019-03-13 14:25 | PREAC ---
Date/Time of Note Date/Time of Note DATE: 03/13/19 TIME: 14:20 Anesthesia Eval and Record Evaluation Time Pre-Procedure Interview DATE: 03/13/19 TIME: 14:20 Age 84 Sex male NPO: 8 hrs Preoperative diagnosis Left Hip Fracture Planned procedure Left Hip Hemiarthroplasty Past Medical History Past Medical History: Includes Cardio: Dyslipidemia, Other (Echo Result:Mild concentric left ventricular hypertrophy with hyperdynamic systolic ) Neuro: Other (Left Subdural Hematoma stable) Heme: Anemia, Thrombocytopenia Infection(s): HIV Surgery & Anesthesia Issues No known issue Meds Anticoagulation: No Beta Lenore within 24 hr: No Reason Beta Lenore not given: Pt. not on B-Lenore Reported Medications Hydrocodone/Acetaminophen ([place] 7.5-325 Tablet) 1 Each Tablet, 1 EACH PO Q6H PRN for PRN, TAB 03/11/19 Doxepin Hcl* (Doxepin Hcl*) 10 Mg Capsule, 10 MG PO HS, CAP 03/11/19 Alendronate Sodium* (Fosamax*) 70 Mg Tablet, 70 MG PO Q7D, #4 TAB 03/11/19 Maraviroc ([place]) 300 Mg Tablet, 300 MG PO BID, TAB 03/11/19 Rosuvastatin Calcium* (Crestor*) 40 Mg Tablet, 40 MG PO QHS, #30 TAB 03/11/19 Mirtazapine* (Mirtazapine*) 15 Mg Tablet, 15 MG PO HS, TAB 03/11/19 Dolutegravir/Rilpivirine ([place] 50-25 mg Tablet) 1 Each Tablet, 1 EACH PO KHRIS Y, TAB 03/11/19 Acyclovir* (Acyclovir*) 400 Mg Tablet, 400 MG PO DAILY, TAB 03/11/19 Meloxicam* (Mobic*) 15 Mg Tablet, 15 MG PO DAILY, #30 TAB 03/11/19 Cyanocobalamin (Vitamin B-12) (Cyanocobalamin Injection) 1,000 Mcg/1 Ml Vial, 1000 MCG IJ Q28D, VIAL 03/11/19 Calcium Carbonate/Vitamin D3 (OYSTER SHELL 500 MG + VIT D TB) 1 Each Tablet, 1 EACH PO BID, TAB 03/11/19 Cholecalciferol* (Vitamin D3*) 1,000 Unit Tablet, 1000 UNIT PO DAILY, TAB 03/11/19 Multivitamins* (Theragran*) 1 Tab Tab, 1 TAB PO DAILY, TAB 03/11/19 Discontinued Reported Medications Etravirine (INTELENCE) 200 Mg Tablet, 200 MG PO BID 09/16/14 [Intelence] No Conflict Check, 200 MG BID 10/25/12 Selenium Sulfide (Selenium Sulfide) 180 Ml Shampoo, 180 ML TP 10/22/12 Olopatadine* (Patanol* Ophth) 5 Ml Drops, 5 ML OP TID 10/22/12 Sildenafil Citrate* (Viagra*) 50 Mg Tablet, 50 MG PO PRN 10/22/12 Diphenoxylate Hcl-Atropine (Lomotil) 1 Tab Tablet, 1 TAB PO PRN 10/22/12 Testosterone Cypionate* (Depo-Testosterone*) 200 Mg/Ml Vial, 200 MG IM every 10 days 10/22/12 Hydrocodone Bit/Acetaminophen (Vicodin 5/500 Tablet) 1 Tab Tablet, 1 TAB PO Q4 PRN 10/22/12 Diazepam* (Diazepam*) 10 Mg Tablet, 10 MG PO HS 10/22/12 Mirtazapine* (Remeron* Soltab) 15 Mg/Tab Tab.rapdis, 15 MG PO HS 10/22/12 valACYclovir Hcl* (Valtrex*) 500 Mg Tablet, 500 MG PO DAILY 10/22/12 Fenofibrate, Micronized* (Fenofibrate*) 160 Mg Tablet, 160 MG PO DAILY 10/22/12 Pravastatin Sodium* (Pravachol*) 80 Mg Tablet, 80 MG PO HS 10/22/12 Aspirin (Aspirin) 81 Mg Tablet, 81 MG PO DAILY 10/22/12 Lisinopril* (Lisinopril*) 5 Mg Tablet, 5 MG PO DAILY 10/22/12 Carvedilol* (Carvedilol*) 6.25 Mg Tablet, 6.25 MG PO BID 10/22/12 Raltegravir Potassium* (Isentress*) 400 Mg Tablet, 400 MG PO BID 10/22/12 Current Medications Sodium Chloride 1,000 ml @ 75 mls/hr [id number] IV Last administered on 03/13/19at 05:58; Admin Dose 75 MLS/HR; Start 03/11/19 at 16:09 IV Flush (NS 3 ml) 3 ml PER PROTOCOL IV ; Start 03/11/19 at 16:30 Ondansetron HCl (Zofran Inj) 4 mg Q6H PRN IV NAUSEA/VOMITING; Start 03/11/19 at 16:30 Hydromorphone HCl (Dilaudid) 1 mg Q4H PRN IV .SEVERE PAIN 7-10 Last admi nistered on 03/12/19at 23:22; Admin Dose 1 MG; Start 03/11/19 at 16:30 Pantoprazole (Protonix Tab) 40 mg DAILY@06 PO Last administered on 03/13/19at 05:59; Admin Dose 40 MG; Start 03/12/19 at 06:00 Acyclovir (Zovirax) 400 mg DAILY PO ; Start 03/12/19 at 09:00 Calcium/Vitamin D (Oyster Shell/ Vit-D (500/200)) 1 tab BID PO Last administered on 03/12/19at 20:53; Admin Dose 1 TAB; Start 03/11/19 at 21:00 Cholecalciferol (Vitamin D) 1,000 unit DAILY PO ; Start 03/12/19 at 09:00 Acetaminophen/ Hydrocodone Bitart ([place] (7.5-325)) 1 tab Q4H PRN PO pain Last administered on 03/13/19at 08:12; Admin Dose 1 TAB; Start 03/11/19 at 16:30 Mirtazapine (Remeron) 15 mg HS PO Last administered on 03/12/19at 20:53; Admin Dose 15 MG; Start 03/11/19 at 21:00 Multivitamins Therapeutic (Theragran) 1 tab DAILY PO ; Start 03/12/19 at 09:00 Rosuvastatin Calcium (Crestor) 40 mg QHS PO Last administered on 03/12/19at 20:53; Admin Dose 40 MG; Start 03/11/19 at 21:00 Miscellaneous Information 1 each DAILY PO ; Start 03/12/19 at 09:00; Status UNV Miscellaneous Information 300 mg BID PO ; Start 03/11/19 at 21:00; Status UNV Hydralazine HCl (Apresoline) 10 mg Q4H PRN IV ELEVATED SYSTOLIC BP; Start 03/11/19 at 16:30 Miscellaneous Information (*Order Clarification Bulletin) MEDICATION REQUIRES CLARIFICATI... Q8H XX ; Start 03/12/19 at 09:00 Acetaminophen (Tylenol Tab) 650 mg Q6H PRN PO MILD PAIN(1-3)OR ELEVATED TEMP; Start 03/13/19 at 09:00 Meds reviewed: Yes Allergies Coded Allergies: Sulfa (Sulfonamide Antibiotics) (Verified Allergy, Unknown, 03/11/19) Allergies Reviewed: Yes Labs/Studies Labs Reviewed: Reviewed by anesthesiologist Result Diagram: 03/13/1953003/13/1931 Laboratory Tests 03/13/19 05:31 Blood Bank Test 03/13/19 05:31 Antibody Screen NEGATIVE Blood Product Summary Counts Blood Type O POSITIVE Crossmatch Red Blood Cells test: N/A Studies: ECG (NSR), CXR Pre-procedure Exam Last vitals Vital Signs Date Temp Pulse Resp B/P (MAP) Pulse Ox O2 O2 Flow FiO2 Time Delivery Rate 03/13/19 98.2 69 16 136/70 100 Nasal 12:00 (92) Cannula 03/13/19 4.0 08:00 Airway: Adequate mouth opening, Adequate thyromental dist Mallampati: Mallampati II Teeth: Normal Lung: Normal Heart: Normal ASA Physical Status ASA physical status: 3 Emergency: None Planned Anesthetic General/MAC: LMA, MAC, TIVA Neuraxial: Spinal Planned Pain Management Sub-arachniod narcotics, Single shot nerve block, Parenteral pain med Pre-operative Attestations Prior to commencing anesthesia and surgery, the patient was re-evaluated, there was verification of: *The patient's identity *The results of appropriate recent lab work and preoperative vital signs *The above evaluation not changing prior to induction *Anesthetic plan, risk benefits, alternative and complications discussed with patient/family; questions answered; patient/family understands, accepts and wis hes to proceed. WILLIAM BRANDT MD Mar 13, 2019 14:25
--- NOTE | 2019-03-13 14:29 | HPN ---
Date/Time of Note Date/Time of Note DATE: 03/13/19 TIME: 14:28 Interval H&P Admission Note Pt. seen H&P reviewed: No system changes The patient did have a fever this morning. But this has now resolved. There was no source of infection is identified. Patient cleared from a neurosurgical standpoint to undergo left hip hemiarthroplasty today. The subdural hematoma is stable based on CT scan. We will hold anticoagulation for a minimum 2 days after surgery. Denies chills, shortness of breath, chest pain, nausea/vomiting, constipation, diarrhea, numbness, and tingling. MUSCULOSKELETAL: Left extremity Skin intact Sensation intact to light touch in a sural, saphenous, deep peroneal, superficial peroneal, medial and lateral plantar nerve distribution. Motor is intact, patient able to dorsiflex and plantarflex ankle and extend and flex great toe. Dorsalis Pedis pulse +2, Brisk capillary refill. Compartments are soft. Calves non-tender to palpation bilaterally. LEAH HAWKINS MD Mar 13, 2019 14:29
[2019-03-13] MEDS ORDERED: CEFAZOLIN 1 GM INJ ONE (14:32)
[2019-03-13] MEDS ORDERED: FENTAnyl 50 MCG/ML VIAL ONE (14:32)
[2019-03-13] MEDS ORDERED: PROPOFOL 100 ML ONE (14:32)
[2019-03-13] MEDS ORDERED: PHENYLephrine (100 MCG/ML) 10ML SYG ONE (14:32)
[2019-03-13] MEDS ORDERED: DEXAMETHASONE 4 MG/ML 5 ML INJ ONE (16:27)
[2019-03-13] MEDS ORDERED: ONDANSETRON 4 MG INJ ONE (16:27)
[2019-03-13] MEDS ORDERED: METOCLOPRAMIDE 10 MG INJ ONE (16:27)
[2019-03-13] MEDS ORDERED: ROPIVACAINE 0.5 % 30 ML VIAL ONE (16:39)
[2019-03-13] MEDS ORDERED: hydrALAzine 20 MG INJ ONE (16:54)
[2019-03-13] MEDS ORDERED: FUROSEMIDE 20 MG INJ ONE (17:45)
[2019-03-13] MEDS ORDERED: NALOXONE (0.4 MG/ML) INJ IV PRN ×2 (18:30→19:00)
[2019-03-13] MEDS ORDERED: METOCLOPRAMIDE 10 MG INJ IV PRN (18:30)
[2019-03-13] MEDS ORDERED: EPHEDrine 25 MG/5 ML SYG IV PRN (18:30)
[2019-03-13] MEDS ORDERED: hydrALAzine 20 MG INJ IV PRN (18:30)
[2019-03-13] MEDS ORDERED: ACETAMINOPHEN 500 MG TAB PO PRN (18:30)
[2019-03-13] MEDS ORDERED: FENTAnyl 50 MCG/ML VIAL IV PRN ×3 (18:30)
[2019-03-13] MEDS ORDERED: ALBUTEROL 0.083% (NEB) 2.5 MG/3 ML AMP HHN PRN (18:30)
[2019-03-13] MEDS ORDERED: HYDROmorphONE 0.5 MG/0.5 ML SYG IV PRN ×5 (18:30)
[2019-03-13] MEDS ORDERED: IPRATROPIUM (NEB) 0.5 MG/2.5 ML AMP HHN PRN (18:30)
[2019-03-13] MEDS ORDERED: DIPHENHYDRAMINE 50 MG INJ IV PRN ×3 (18:30)
[2019-03-13] MEDS ORDERED: MEPERIDINE 25 MG INJ IV PRN ×2 (18:30)
[2019-03-13] MEDS ORDERED: ALBUMIN HUMAN 5% 250 ML IV PRN (18:30)
[2019-03-13] MEDS ORDERED: NALBUPHINE HCL (10 MG/1 ML) INJ IV PRN (18:30)
[2019-03-13] MEDS ORDERED: ONDANSETRON 4 MG INJ IV PRN ×2 (18:30)
[2019-03-13] MEDS ORDERED: LABETALOL HCL 20MG INJ IV PRN (18:30)
[2019-03-13] MEDS ORDERED: HYDROCODONE/APAP (5/325) TAB PO PRN (18:30)
[2019-03-13] MEDS ORDERED: MEPERIDINE 25 MG INJ ONE (18:40)
--- NOTE | 2019-03-13 18:43 | PAC ---
Date/Time of Note Date/Time of Note DATE: 03/13/19 TIME: 18:42 Post-Anesthesia Notes Post-Anesthesia Note Last documented vital signs Vital Signs Date Temp Pulse Resp B/P (MAP) Pulse Ox O2 O2 Flow FiO2 Time Delivery Rate 03/13/19 99.2 66 15 145/72 96 face mask 18:40 (96) 03/13/19 98.2 Nasal 12:00 Cannula 03/13/19 4.0 08:00 Activity: WNL Respiratory function: WNL Cardiovascular function: WNL Mental status: Baseline Pain reasonably controlled: Yes Hydration appropriate: Yes Nausea/Vomiting absent: Yes WILLIAM BRANDT MD Mar 13, 2019 18:43
[2019-03-13] MEDS ORDERED: NA PHOSPHATE/BIPHOS 133 ML ENEMA PR PRN (19:00)
[2019-03-13] MEDS ORDERED: MAGNESIUM HYDROXIDE 30ML CUP PO PRN (19:00)
[2019-03-13] MEDS ORDERED: BISACODYL 10 MG SUPP PR PRN (19:00)
[2019-03-13] MEDS ORDERED: NACL 0.9% 3 ML SYG IV SCH (19:00)
[2019-03-13] MEDS ORDERED: oxyCODONE 5 MG TAB PO PRN ×2 (19:00)
[2019-03-13] MEDS ORDERED: HYDROmorphONE 1 MG/ML SYG IV PRN (19:00)
[2019-03-13] MEDS ORDERED: DOCUSATE SODIUM 100 MG CAP PO ONE (19:00)
[2019-03-13] MEDS ORDERED: BETHANECHOL 25 MG TAB PO PRN (19:00)
[2019-03-13] MEDS: LACTATED RINGER'S 1,000 ML IV SCH (19:20)
--- NOTE | 2019-03-13 20:23 | OPR ---
Date/Time of Note Date/Time of Note DATE: 03/13/19 TIME: 20:13 Operative Report Procedure Date: Mar 13, 2019 Preoperative Diagnosis Left femoral neck fracture Postoperative Diagnosis As above Operation/Procedure Performed Left cemented hip hemiarthroplasty Surgeon see signature line [employer] Audra Garcia Anesthesia Type: general, spinal Estimated Blood Loss: 200 - 250 ml's Transfusion 1u PRBC Specimen Femoral head Grafts/Implants Implant: DePuy: Femoral stem: Andrews cemented size 5, high offset Femoral outer head: 49 mm cobalt chrome Femoral inner head: 28 mm +5 mm ceramic Complications none Disposition: other (ICU) Procedure Description PREOP DIAGNOSIS: Left femoral neck fracture POSTOP DIAGNOSIS: Same. SURGICAL PROCEDURE: Left cemented hip hemiarthroplasty arthroplasty (CPT code 04502). INDICATIONS: The patient is a 84 year-old man who presented to the emergency department with a displaced left femoral neck fracture after a fall. No previous open surgical scars. Neurovascularly intact. Radiographs revealed displaced femoral neck fracture. Patient has history of HIV. Patient was found to have a subdural hematoma on CT scan. This was watched over the next [address] scans. Given that there is no further enlargement of the subdural hematoma the patient was cleared for surgery by neurosurgery. INFORMED CONSENT: The operative procedure was explained using diagrams and/or three-dimensional models. The rehabilitation, the potential risks, benefits and alternatives were discussed at length. Specific risks discussed included but were not limited to excessive blood loss and the need for transfusion and therefore the risk of transmissible disease or transfusion reaction, deep infection and the potential need for repetitive debridements, implant removal, long-term antibiotic therapy, possibly requiring deep venous access, leg-length discrepancy, dislocation, possibly recurrent, with the need for closed versus open reduction, bracing, femoral or acetabular fracture and the need for further surgery for fixation, neurovascular injury with temporary or permanent numbness, tingling, weakness or paralysis, deep venous thrombosis, pulmonary embolism and , persistent pain, weakness, or limp, late aseptic loosening and the need for revision, polyethylene wear-induced osteolysis and related problems, and finally, a wide variety of unanticipated medical problems. The opportunity to ask questions and address any concerns was provided. The patient wished to proceed. FINDINGS: Transcervical displaced left femoral neck fracture SURGERY IN DETAIL: The patient was taken into the Operating Room and placed supine on the operating table. Preoperatively, they were administered Ancef. They were administered general and spinal anesthesia by the Anesthesia Department. The patient was placed on an [facility] Lateral Positioner in a right lateral decubitus position with the left hip superior. An axillary roll was placed, all pressure points were confirmed padded. The left hip region was prepped and draped in sterile fashion. A surgical pause was performed, correctly identifying the patient's name, the correct medical record number, the correct diagnosis, correct surgical procedure, and the correct extremity. 1g of tranexamic acid was dosed at the time of incision A posterolateral skin incision, approximately 10-15 cm in length was made, centered over the greater trochanter, skin and subcutaneous tissue sharply dissected. Deep fascial layer was identified and incised in line with the skin incision. Gluteus medius was retracted anteriorly. Piriformis tendon was identified, tagged with a stitch, and incised close to its insertion. The interval between the gluteus minimus and hip capsule was developed superiorly, and a superior retractor was placed. Short external rotators were subperiosteally incised from the posterior proximal femur to the level of the lesser trochanter and an inferior retractor was placed. A posterior capsulotomy was performed. Two tag stitches were placed in the capsule. The hip was then internally rotated and the femoral neck fracture was visualized. At this time the femoral neck fracture was re-cut at the appropriate level and neck angle. The femur was then retracted anteriorly to expose the acetabulum and femoral head. The corkscrew was used on power into the femoral head followed by the T-handled to remove the femoral head. The femoral head was then sized on the back table. At this time our attention turned towards the femur. Soft tissues were removed from the junction of the greater trochanter and the femoral neck osteotomy. A box osteotome was used lateralize the starting point. A starting awl was utilized, followed by a lateralizing reamer, followed by axial reamers for the Andrews system up to a size 4. The femoral canal was then broached up to a size 5. A neutral femoral head was inserted and the hip was reduced. Range of motion and stability were less than ideal. External Rotation was also tested, and was stable with no impingement or instability at full extension and 30 degrees external rotation. Intraoperative x-ray revealed the hip to have satisfactory position of all components with slight shortening. Offset was difficult to evaluate secondary to other hip status post IM nail for IT fracture. Therefore a +5 head was trialed with increased ability. This was followed by trialing a high offset neck with a +5 head. Stability and range of motion was excellent. Hip was stable with the hip flexed 90 degrees with 80 degrees of internal rotation, flex to 45 degrees with adduction and internal rotated to 90 degrees. No impingement with external rotation. The hip was dislocated in controlled manner using a bone hook and the trial components removed. Local anesthetic was injected periarticular. The hip was dislocated in controlled manner using a bone hook and the trial components removed. The femoral canal was then prepared for cementation. Third generation cement technique was utilized. The canal was copiously irrigated followed by a cement restrictor placed approximately 2 cm distal to the planned end of the stem. A canal brush was used to remove loose debris and bone. Hydrogen peroxide was used to dry up remaining blood in the canal followed by vaginal packing. A lap was placed in the acetabulum to protect it from cement. Once the cement was ready the vaginal packing was removed remaining fluid was suctioned from the canal and cement was placed in the canal backfilling until all the cement was utilized and was then further pressurized. The cemented Andrews size 5 high offset was then inserted into the cement care was taken to keep the stem out of varus and to keep appropriate anteversion. The stem was held in position while the cement dried and excess cement was removed. Earlier in the case is an outer diameter head of 49 mm was trialed. This was the best fit size. At this time however I was notified that there was no 49 mm had available. The only size is available around 49 mm was 48 and 50. Between 48 and 50 mm to 50 mm trial fit better. Therefore a 50 mm cobalt chrome outer head with a 28 mm +5 mm inner ceramic head head was inserted onto the taper. The hip was reduced. One final time range of motion, stability, and soft tissue tension were satisfactory. The wound was thoroughly irrigated. 1g of tranexamic acid was dosed. The previously tagged arthrotomy, as well as the piriformis tendon was reattached to the gluteus medius at the level the greater trochanter. The deep fascial layer was closed with 1 Vicryl in a [id number], interrupted fashion, deep subcutaneous tissues irrigated and closed with 0 Vicryl interrupted fashion, subcutaneous tissues irrigated, closed with 2-0 Vicryl in an inverted, interrupted fashion. The skin was closed with andrés. A sterile dressing was applied, abduction pillow was placed between the legs, and the patient was transferred to a supine position. Postoperative clinical leg lengths, rotation of limb were neutral and symmetric. All Counts were correct x2 DISPOSITION: Patient transferred to PACU in stable condition. The patient will be weight bearing as tolerated on the operative extremity. PT will begin POD#0 if available. Posterior hip precautions for 3 months with an abduction pillow. Postoperative AP pelvis will be ordered in PACU. Bilateral knee high SCDs will be worn while admitted. Patient's anticoagulation will be held for at least 48 hours status post surgery per the recommendations of neurosurgery. Lovenox 40mg Daily will be given for DVT prophylaxis for 6 weeks. Pain will be controlled with medication. The patient will follow up in clinic in approximately 2 weeks. Implant: DePuy: Femoral stem: Andrews cemented size 5, high offset Femoral outer head: 49 mm cobalt chrome Femoral inner head: 28 mm +5 mm LEAH Vazquez MD Mar 13, 2019 20:23
[2019-03-13] MEDS: MIRTAZAPINE 15 MG TAB PO SCH (21:00)
[2019-03-13] MEDS: GABAPENTIN 300 MG CAP PO SCH (21:00)
[2019-03-13] MEDS: ROSUVASTATIN CALCIUM 40 MG TABLET PO SCH (21:00)
[2019-03-13] MEDS: ACETAMINOPHEN 500 MG TAB PO SCH (22:00)
[2019-03-13] MEDS: CEFAZOLIN 2 GM/50 ML (PMX) 50 ML IVPB SCH (22:02)
[2019-03-13] MEDS: ACETAMINOPHEN 650 MG SUPP PR SCH (22:14)
[2019-03-14] VITALS (60 sets, daily range): BP systolic 100–170; BP diastolic 48–109; PULSE 59–82; RESP 10–26
[2019-03-14] MEDS: LACTATED RINGER'S 1,000 ML IV SCH ×2 (03:59→14:42)
[2019-03-14] MEDS: ACETAMINOPHEN 650 MG SUPP PR SCH ×2 (04:34→10:02)
[2019-03-14] MEDS: ACETAMINOPHEN 500 MG TAB PO SCH ×3 (06:00→22:00)
[2019-03-14] MEDS: PANTOPRAZOLE (EC) 40 MG TAB PO SCH (06:00)
[2019-03-14] MEDS: CEFAZOLIN 2 GM/50 ML (PMX) 50 ML IVPB SCH ×2 (06:22→14:55)
[2019-03-14] MEDS: CHOLECALCIFEROL 1,000 UNIT TAB PO SCH (09:00)
[2019-03-14] MEDS: DOCUSATE SODIUM 100 MG CAP PO SCH ×2 (09:00→21:04)
[2019-03-14] MEDS: CALCIUM/VITAMIN D (500/200) TAB PO SCH ×2 (09:00→21:04)
[2019-03-14] MEDS: ACYCLOVIR 400 MG TAB PO SCH (09:00)
[2019-03-14] MEDS: MULTIVITAMINS THERAPEUTIC TAB PO SCH (09:00)
[2019-03-14] MEDS ORDERED: MAGNESIUM SULFATE 2 GM/50 ML 50 ML IVPB ONE (09:30)
--- NOTE | 2019-03-14 09:37 | PN ---
Date/Time of Note Date/Time of Note DATE: 03/14/19 TIME: 09:34 Assessment/Plan Lines/Catheters IV Catheter Type (from Nrs): A Line Thomas in Place (from Nrs): Yes Assessment/Plan Chief Complaint/Hosp Course POD#1 s/p left hip hemiarthroplasty. Patient also has a known subdural hematoma. DVT prophylaxis will be held for 48 hours after surgery. If subdural hematoma stable neurosurgery cleared use of anticoagulation. Patient will continue to have bilateral SCDs. At the time of rounding the patient's saturation was 100% on a nonrebreather. He was transitioned back to a regular oxygen mask. If the patient continues to have oxygen desaturation will further evaluate for possible pulmonary embolism with a CT chest angiogram. -Post op H&H stable -PT/OT. Posterior Hip Precautions -Joints pain control protocol -DVT prophylaxis: SCD's, hold chemoprophylaxis per neurosurgery recommendations for 48 hours -Weight bearing status: as tolerated -Post-op XR ordered -Abx: 24h vanc/ancef -Diet: ADAT -Thomas: Continue until medically stable and mobilizes. -Discharge planning consult Discharge to SNF Subjective 24 Hr Interval Summary Patient doing well Patient did desaturate overnight. Required 6 L oxygen and earlier this morning was transitioned to a nonrebreather. Pain is well controlled Exam/Review of Systems Vital Signs Vitals Vital Signs Date Temp Pulse Resp B/P (MAP) Pulse Ox O2 O2 Flow FiO2 Time Delivery Rate 03/14/19 73 19 151/75 100 Non 15.0 08:15 (100) Rebreather 03/14/19 97.8 08:00 Intake and Output 03/13/19 03/13/19 03/14/19 1515:00 23:00 07:00 IntakeIntake Total 680 ml 3280 ml 700 ml OutputOutput Total 230 ml 2200 ml 150 ml BalanceBalance 450 ml 1080 ml 550 ml Exam Free Text/Dictation Left lower extremity: Dressing: clean, dry, and intact, no erythema Sensation intact to light touch in a sural, saphenous, deep peroneal, superficial peroneal, medial and lateral plantar nerve distribution. Motor is intact, patient able to dorsiflex and plantarflex ankle and extend and flex great toe. Dorsalis Pedis pulse +2, Brisk capillary refill. Compartments are soft. Calves non-tender to palpation bilaterally. Results Result Diagram: 03/14/19 0430 03/14/19 0430 LEAH HAWKINS MD Mar 14, 2019 09:37
--- NOTE | 2019-03-14 13:27 | PN ---
Date/Time of Note Date/Time of Note DATE: 03/14/19 TIME: 13:23 Assessment/Plan VTE Prophylaxis Risk score (from Ns)>0 risk: 11 [place] [facility] [place] Pharmacological prophylaxis: NA/contraindicated Pharm contraindication: bleeding Lines/Catheters IV Catheter Type (from Nrsg): A Line Urinary Cath still in place: Yes Reason Cath still needed: skin wounds contaminated by urine Assessment/Plan Assessment/Plan 84 yo man history of aortic valve replacement, HIV presents with L hip fracture and subdural hematoma after fall #Subdural hematoma - Dr. Gregg consulted - Repeat head CT shows no significant change in bleed. - Anticoagulation when okay per neurosurgery. #L hip fracture - s/p L hip hemiarthroplasty 03/13 - Pain control - PT, OT #Aortic valve replacement - Patient does report some dyspnea on exertion recently, otherwise no major CHF or ACS symptoms. - Dr. Bass consulted for pre-op clearance. #HIV 1 infection, chronic. - Continue home antiretrovirals - Viral load undetectable. CD4 >400. - No signs or symptoms of acute HIV or opportunistic infections. #Chronic lower back pain - Holding home NSAID for intracranial bleed - Opioids as above. #Dyslipidemia - Cont statin #Osteoporosis - Cont vitamin D DVT: SCDs only GI: Protonix PO 40 minutes critical care time spent on this patient. Result Diagram: 03/14/19 0430 03/14/19 0430 Subjective 24 Hr Interval Summary Free Text/Dictation Went for hip hemiarthroplasty yesterday. Last night had shaking chills. Blood cultures sent. Also hypoxemic, briefly required nonrebreather oxygen. Today doing well, breathing comfortably on nasal cannula, sleeping. Exam/Review of Systems Exam Vitals Vital Signs Date Temp Pulse Resp B/P (MAP) Pulse Ox O2 O2 Flow FiO2 Time Delivery Rate 03/14/19 77 17 124/80 93 12:15 (95) 03/14/19 98.6 Nasal 4.0 12:00 Cannula Intake and Output 03/13/19 03/13/19 03/14/19 1515:00 23:00 07:00 IntakeIntake Total 680 ml 3280 ml 700 ml OutputOutput Total 230 ml 2200 ml 150 ml BalanceBalance 450 ml 1080 ml 550 ml Exam Gen: Robust appearing elderly man comfortable, sleeping. Eyes: Pupils minimally reactive to light bilaterally. No icterus HEENT: Moist mucous membranes, clear oropharynx Neck: No lymphadenopathy, supple, nontender. Card: Regular rate and rhythm, 3/6 systolic ejection murmur loudest at RUSB and LUSB. Chest: well healed sternotomy scar Pulm: Clear to auscultation bilaterally Abd: Soft, nontender, nondistended. Hypoactive bowel sounds. Ext: L hip dressing clean, dry, minimal blood. Skin: warm, dry, well perfused. Results Results 24hrs Laboratory Tests Test 03/14/19 04:30 White Blood Count 4.6 L Red Blood Count 3.23 L Hemoglobin 9.7 L Hematocrit 30.2 L Mean Corpuscular Volume 93.5 Mean Corpuscular Hemoglobin 30.0 Mean Corpuscular Hemoglobin Concent 32.1 Red Cell Distribution Width 14.0 Platelet Count 96 #L Mean Platelet Volume 11.6 H Immature Granulocytes % 0.400 Neutrophils % 90.0 H Lymphocytes % 6.8 L Monocytes % 2.8 Eosinophils % 0.0 Basophils % 0.0 Nucleated Red Blood Cells % 0.0 Immature Granulocytes # 0.020 Neutrophils # 4.1 Lymphocytes # 0.3 L Monocytes # 0.1 L Eosinophils # 0.0 Basophils # 0.0 Nucleated Red Blood Cells # 0.0 Prothrombin Time 16.8 H Prothrombin Time Ratio 1.3 INR International Normalized Ratio 1.35 Sodium Level 141 Potassium Level 4.0 Chloride Level 108 Carbon Dioxide Level 29 Anion Gap 4 L Blood Urea Nitrogen 13 Creatinine 0.56 L Est Glomerular Filtrat Rate mL/min Glucose Level 146 Calcium Level 7.2 L Medications Medication Current Medications IV Flush (NS 3 ml) 3 ml PER PROTOCOL IV ; Start 03/11/19 at 16:30 Ondansetron HCl (Zofran Inj) 4 mg Q6H PRN IV NAUSEA/VOMITING; Start 03/11/19 at 16:30 Hydromorphone HCl (Dilaudid) 1 mg Q4H PRN IV .SEVERE PAIN 7-10 Last administered on 03/12/19at 23:22; Admin Dose 1 MG; Start 03/11/19 at 16:30 Acyclovir (Zovirax) 400 mg DAILY PO ; Start 03/12/19 at 09:00 Calcium/Vitamin D (Oyster Shell/ Vit-D (500/200)) 1 tab BID PO Last administered on 03/12/19at 20:53; Admin Dose 1 TAB; Start 03/11/19 at 21:00 Cholecalciferol (Vitamin D) 1,000 unit DAILY PO ; Start 03/12/19 at 09:00 Mirtazapine (Remeron) 15 mg HS PO Last administered on 03/12/19at 20:53; Admin Dose 15 MG; Start 03/11/19 at 21:00 Multivitamins Therapeutic (Theragran) 1 tab DAILY PO ; Start 03/12/19 at 09:00 Rosuvastatin Calcium (Crestor) 40 mg QHS PO Last administered on 03/12/19at 20:53; Admin Dose 40 MG; Start 03/11/19 at 21:00 Miscellaneous Information 1 each DAILY PO ; Start 03/12/19 at 09:00; Status UNV Miscellaneous Information 300 mg BID PO ; Start 03/11/19 at 21:00; Status UNV Hydralazine HCl (Apresoline) 10 mg Q4H PRN IV ELEVATED SYSTOLIC BP; Start 03/11/19 at 16:30 Miscellaneous Information (*Order Clarification Bulletin) MEDICATION REQUIRES CLARIFICATI... Q8H XX ; Start 03/12/19 at 09:00 Acetaminophen (Tylenol Tab) 650 mg Q6H PRN PO MILD PAIN(1-3)OR ELEVATED TEMP; Start 03/13/19 at 09:00 Albumin Human 250 ml @ 750 mls/hr ICU RECOVERY PRN IV SBP less than 90 mmHg; Start 03/13/19 at 18:30 Miscellaneous Information (* Miscellaneous Pharmacy Order) FENTANYL: 20 MCG SPI... GIVEN NEURAXIAL XX ; Start 03/13/19 at 18:30 Albuterol (Proventil 0.083% (Neb)) 2.5 mg ICU RECOVERY PRN HHN .WHEEZING; Start 03/13/19 at 18:30 Lactated Ringer's 1,000 ml @ 100 mls/hr Q10H IV Last administered on 03/14/19at 03:59; Admin Dose 100 MLS/HR; Start 03/13/19 at 18:42 Oxycodone HCl (Roxicodone) 15 mg Q4H PRN PO PAIN 9-10; Start 03/13/19 at 19:00 Oxycodone HCl (Roxicodone) 10 mg Q4H PRN PO PAIN 6-8; Start 03/13/19 at 19:00 Oxycodone HCl (Roxicodone) 5 mg Q4H PRN PO PAIN 4-5; Start 03/13/19 at 19:00 Hydromorphone HCl (Dilaudid) 1 mg Q3H PRN IV .BREAKTHROUGH PAIN; Start 03/13/19 at 19:00 Acetaminophen (Tylenol Tab) 1,000 mg Q8 PO ; Start 03/13/19 at 22:00 Ondansetron HCl (Zofran Inj) 4 mg Q4H PRN IV NAUSEA/VOMITING; Start 03/14/19 at 19:00 Cefazolin Sodium/ Dextrose 50 ml @ 100 mls/hr Q8H IVPB Last administered on 03/14/19at 06:22; Admin Dose 100 MLS/HR; Start 03/13/19 at 22:00; Stop 03/14/19 at 14:29 Gabapentin (Neurontin) 300 mg QHS PO ; Start 03/13/19 at 21:00 Pantoprazole (Protonix Tab) 40 mg DAILY@06 PO ; Start 03/14/19 at 06:00 Docusate Sodium (Colace) 200 mg BID PO ; Start 03/14/19 at 09:00; Stop 03/16/19 at 21:01 Simethicone (Mylicon) 80 mg TID PRN PO .GAS; Start 03/13/19 at 19:00 Senna/Docusate Sodium (Senokot-S) 2 tab BID PRN PO .CONSTIPATION; Start 03/13/19 at 19:00 Magnesium Hydroxide (Milk Of Mag) 30 ml HS PRN PO .CONSTIPATION; Start 03/13/19 at 19:00 Bisacodyl (Dulcolax Supp) 10 mg DAILY PRN [place] .CONSTIPATION; Start 03/13/19 at 19:00 Sodium Biphosphate/ Sodium Phosphate (Fleet Enema) 133 ml DAILY PRN [place] .CONSTIPATION; Start 03/13/19 at 19:00 Naloxone HCl (Narcan) 0.2 mg Q2M PRN IV .RESP RATE; Start 03/13/19 at 19:00 IV Flush (NS 3 ml) 3 ml per protocol IV ; Start 03/13/19 at 19:00 Bethanechol Chloride (Urecholine) 25 mg URINARY CATH D/C PRN PO UNABLE TO VOID; Start 03/13/19 at 19:00 Acetaminophen (Tylenol Supp) 650 mg Q6H [place] Last administered on 03/14/19at 10:02; Admin Dose 650 MG; Start 03/13/19 at 21:30 EMI GROSSMAN MD Mar 14, 2019 13:27
[2019-03-14] MEDS ORDERED: ONDANSETRON 4 MG INJ IV PRN (19:00)
[2019-03-14] MEDS: GABAPENTIN 300 MG CAP PO SCH (21:04)
[2019-03-14] MEDS: ROSUVASTATIN CALCIUM 40 MG TABLET PO SCH (21:04)
[2019-03-14] MEDS: MIRTAZAPINE 15 MG TAB PO SCH (21:04)
[2019-03-15] MEDS: LACTATED RINGER'S 1,000 ML IV SCH ×2 (03:03→10:42)
[2019-03-15 04:04] VITALS: BP 112/59; PULSE 72; RESP 18
[2019-03-15] MEDS: PANTOPRAZOLE (EC) 40 MG TAB PO SCH (05:40)
[2019-03-15] MEDS: ACETAMINOPHEN 500 MG TAB PO SCH ×3 (05:42→22:16)
[2019-03-15 07:51] VITALS: BP 116/70; PULSE 71; RESP 18
[2019-03-15] MEDS: DOCUSATE SODIUM 100 MG CAP PO SCH ×2 (08:43→21:13)
[2019-03-15] MEDS: MULTIVITAMINS THERAPEUTIC TAB PO SCH (08:43)
[2019-03-15] MEDS: SENNA/DOCUSATE NA (8.6MG/50MG) TAB PO PRN (08:43)
[2019-03-15] MEDS: ACYCLOVIR 400 MG TAB PO SCH (08:43)
[2019-03-15] MEDS: CALCIUM/VITAMIN D (500/200) TAB PO SCH ×2 (08:43→21:14)
[2019-03-15] MEDS: CHOLECALCIFEROL 1,000 UNIT TAB PO SCH (08:43)
[2019-03-15] MEDS: PATIENT'S OWN MEDICATION PO SCH ×3 (08:44→21:12)
--- NOTE | 2019-03-15 10:36 | PN ---
Date/Time of Note Date/Time of Note DATE: 03/15/19 TIME: 10:35 Assessment/Plan Lines/Catheters IV Catheter Type (from Nrsg): Peripheral IV Thomas in Place (from Nrsg): Yes Assessment/Plan Chief Complaint/Hosp Course POD#2 s/p left hip hemiarthroplasty. Patient also has a known subdural hematoma. DVT prophylaxis will be held for 48 hours after surgery. If subdural hematoma stable neurosurgery cleared use of anticoagulation. Patient will continue to have bilateral SCDs. Patient transferred out of the ICU to telemetry. Need to follow-up with medicine and neurosurgery regarding chemoprophylaxis for DVT. -Post op H&H stable -PT/OT. Posterior Hip Precautions -Joints pain control protocol -DVT prophylaxis: SCD's, hold chemoprophylaxis per neurosurgery recommendations for 48 hours -Weight bearing status: as tolerated -Diet: ADAT -Thomas: Discontinue -Discharge planning consult Discharge to SNF Subjective 24 Hr Interval Summary Patient doing well No acute events overnight Pain is well controlled Exam/Review of Systems Vital Signs Vitals Vital Signs Date Temp Pulse Resp B/P (MAP) Pulse Ox O2 O2 Flow FiO2 Time Delivery Rate 03/15/19 98.2 71 18 116/70 97 07:51 (85) 03/15/19 4.0 02:12 03/14/19 Nasal 20:00 Cannula Intake and Output 03/14/19 03/14/19 03/15/19 1515:00 23:00 07:00 IntakeIntake Total 1540 ml 550 ml 1300 ml OutputOutput Total 240 ml 1450 ml BalanceBalance 1300 ml 550 ml -150 ml Exam Free Text/Dictation Left lower extremity: Dressing: clean, dry, and intact, no erythema Sensation intact to light touch in a sural, saphenous, deep peroneal, superfic ial peroneal, medial and lateral plantar nerve distribution. Motor is intact, patient able to dorsiflex and plantarflex ankle and extend and flex great toe. Dorsalis Pedis pulse +2, Brisk capillary refill. Compartments are soft. Calves non-tender to palpation bilaterally. Results Result Diagram: 03/15/19 0616 03/15/19 0616 LEAH HAWKINS MD Mar 15, 2019 10:36
[2019-03-15 12:14] VITALS: BP 121/68; PULSE 73; RESP 18
--- NOTE | 2019-03-15 12:20 | PN ---
Date/Time of Note Date/Time of Note DATE: 03/15/19 TIME: 12:06 Assessment/Plan VTE Prophylaxis Risk score (from Ns)>0 risk: 10 SCD applied (from Ns): Yes Pharmacological prophylaxis: NA/contraindicated Pharm contraindication: bleeding Lines/Catheters IV Catheter Type (from Nrsg): Saline Lock Urinary Cath still in place: Yes Reason Cath still needed: urinary retention Assessment/Plan Hospital Course S: Patient seen by orthopedic surgery team earlier today, no apparent acute events overnight. O: VS- see below PE: Gen: comfortable, sleeping. Eyes: Pupils minimally reactive to light bilaterally. No icterus HEENT: Moist mucous membranes, clear oropharynx Neck: No lymphadenopathy, supple, nontender. Card: Regular rate and rhythm, 3/6 systolic ejection murmur loudest at RUSB and LUSB. Chest: well healed sternotomy scar Pulm: Clear to auscultation bilaterally Abd: Soft, nontender, nondistended. Hypoactive bowel sounds. Ext: L hip dressing clean, dry, minimal blood. Assessment/Plan: 84 yo man history of aortic valve replacement, HIV presents with L hip fracture and subdural hematoma after fall #Subdural hematoma-neurosurgery team consulted- Repeat head CT shows no significant change in bleed. -Monitor, continue anticoagulation when okay per neurosurgery-likely in 24 hours but will try to reach out to them today and confirm this #L hip fracture- s/p L hip hemiarthroplasty 03/13 -For now continue pain control -Continue PT, OT, follow-up orthopedic surgery recommendations #Aortic valve replacement- Patient does report some dyspnea on exertion recently, otherwise no major CHF or ACS symptoms-earlier cardiology team Dr. Bass consulted for pre-op clearance. -Monitor for now #HIV 1 infection, chronic- Viral load undetectable. CD4 >400- No signs or symptoms of acute HIV or opportunistic infections. - Continue home antiretrovirals, acyclovir #Chronic lower back pain -Monitor, continue PT, holding home NSAID for intracranial bleed -Cautious use of PRN opioids as above. #Dyslipidemia - Cont statin #Osteoporosis - Cont vitamin D DVT: SCDs only GI: Protonix PO Result Diagram: 03/15/19 0616 03/15/19 0616 Results 24hrs Laboratory Tests Test 03/15/19 06:16 White Blood Count 5.0 Red Blood Count 3.17 L Hemoglobin 9.3 L Hematocrit 29.2 L Mean Corpuscular Volume 92.1 Mean Corpuscular Hemoglobin 29.3 Mean Corpuscular Hemoglobin Concent 31.8 L Red Cell Distribution Width 14.2 Platelet Count 96 L Mean Platelet Volume 11.7 H Immature Granulocytes % 0.400 Neutrophils % 73.9 Lymphocytes % 16.8 Monocytes % 8.5 Eosinophils % 0.2 Basophils % 0.2 Nucleated Red Blood Cells % 0.0 Immature Granulocytes # 0.020 Neutrophils # 3.7 Lymphocytes # 0.8 Monocytes # 0.4 Eosinophils # 0.0 Basophils # 0.0 Nucleated Red Blood Cells # 0.0 Prothrombin Time 16.9 H Prothrombin Time Ratio 1.3 INR International Normalized Ratio 1.36 Sodium Level 141 Potassium Level 4.0 Chloride Level 107 Carbon Dioxide Level 32 H Anion Gap 2 L Blood Urea Nitrogen 15 Creatinine 0.54 L Est Glomerular Filtrat Rate mL/min Glucose Level 130 Calcium Level 7.7 L Phosphorus Level 1.5 L Magnesium Level 2.3 Exam/Review of Systems Exam Vitals Vital Signs Date Temp Pulse Resp B/P (MAP) Pulse Ox O2 O2 Flow FiO2 Time Delivery Rate 03/15/19 Nasal 4.0 08:30 Cannula 03/15/19 98.2 71 18 116/70 97 07:51 (85) Intake and Output 03/14/19 03/14/19 03/15/19 1515:00 23:00 07:00 IntakeIntake Total 1540 ml 550 ml 1300 ml OutputOutput Total 240 ml 1450 ml BalanceBalance 1300 ml 550 ml -150 ml Results Results 24hrs Laboratory Tests Test 03/15/19 06:16 White Blood Count 5.0 Red Blood Count 3.17 L Hemoglobin 9.3 L Hematocrit 29.2 L Mean Corpuscular Volume 92.1 Mean Corpuscular Hemoglobin 29.3 Mean Corpuscular Hemoglobin Concent 31.8 L Red Cell Distribution Width 14.2 Platelet Count 96 L Mean Platelet Volume 11.7 H Immature Granulocytes % 0.400 Neutrophils % 73.9 Lymphocytes % 16.8 Monocytes % 8.5 Eosinophils % 0.2 Basophils % 0.2 Nucleated Red Blood Cells % 0.0 Immature Granulocytes # 0.020 Neutrophils # 3.7 Lymphocytes # 0.8 Monocytes # 0.4 Eosinophils # 0.0 Basophils # 0.0 Nucleated Red Blood Cells # 0.0 Prothrombin Time 16.9 H Prothrombin Time Ratio 1.3 INR International Normalized Ratio 1.36 Sodium Level 141 Potassium Level 4.0 Chloride Level 107 Carbon Dioxide Level 32 H Anion Gap 2 L Blood Urea Nitrogen 15 Creatinine 0.54 L Est Glomerular Filtrat Rate mL/min Glucose Level 130 Calcium Level 7.7 L Phosphorus Level 1.5 L Magnesium Level 2.3 Medications Medication Current Medications IV Flush (NS 3 ml) 3 ml PER PROTOCOL IV ; Start 03/11/19 at 16:30 Ondansetron HCl (Zofran Inj) 4 mg Q6H PRN IV NAUSEA/VOMITING; Start 03/11/19 at 16:30 Hydromorphone HCl (Dilaudid) 1 mg Q4H PRN IV .SEVERE PAIN 7-10 Last administered on 03/12/19 23:22; Admin Dose 1 MG; Start 03/11/19 at 16:30 Acyclovir (Zovirax) 400 mg DAILY PO Last administered on 03/15/19 08:43; Admin Dose 400 MG; Start 03/12/19 at 09:00 Calcium/Vitamin D (Oyster Shell/ Vit-D (500/200)) 1 tab BID PO Last administered on 03/15/19 08:43; Admin Dose 1 TAB; Start 03/11/19 at 21:00 Cholecalciferol (Vitamin D) 1,000 unit DAILY PO Last administered on 03/15/19 08:43; Admin Dose 1,000 UNIT; Start 03/12/19 at 09:00 Mirtazapine (Remeron) 15 mg HS PO Last administered on 03/14/19 21:04; Admin Dose 15 MG; Start 03/11/19 at 21:00 Multivitamins Therapeutic (Theragran) 1 tab DAILY PO Last administered on 03/15/19 08:43; Admin Dose 1 TAB; Start 03/12/19 at 09:00 Rosuvastatin Calcium (Crestor) 40 mg QHS PO Last administered on 03/14/19 21:04; Admin Dose 40 MG; Start 03/11/19 at 21:00 Hydralazine HCl (Apresoline) 10 mg Q4H PRN IV ELEVATED SYSTOLIC BP; Start 03/11/19 at 16:30 Miscellaneous Information (*Order Clarification Bulletin) MEDICATION REQUIRES CLARIFICATI... Q8H XX ; Start 03/12/19 at 09:00 Acetaminophen (Tylenol Tab) 650 mg Q6H PRN PO MILD PAIN(1-3)OR ELEVATED TEMP Last administered on 03/15/19at 08:42; Admin Dose 650 MG; Start 03/13/19 at 09:00 Albumin Human 250 ml @ 750 mls/hr ICU RECOVERY PRN IV SBP less than 90 mmHg; Start 03/13/19 at 18:30 Miscellaneous Information (* Miscellaneous Pharmacy Order) FENTANYL: 20 MCG SPI... GIVEN NEURAXIAL XX ; Start 03/13/19 at 18:30 Albuterol (Proventil 0.083% (Neb)) 2.5 mg ICU RECOVERY PRN HHN .WHEEZING; Start 03/13/19 at 18:30 Lactated Ringer's 1,000 ml @ 100 mls/hr Q10H IV Last administered on 03/15/19at 03:03; Admin Dose 100 MLS/HR; Start 03/13/19 at 18:42 Oxycodone HCl (Roxicodone) 15 mg Q4H PRN PO PAIN 9-10; Start 03/13/19 at 19:00 Oxycodone HCl (Roxicodone) 10 mg Q4H PRN PO PAIN 6-8; Start 03/13/19 at 19:00 Oxycodone HCl (Roxicodone) 5 mg Q4H PRN PO PAIN 4-5; Start 03/13/19 at 19:00 Hydromorphone HCl (Dilaudid) 1 mg Q3H PRN IV .BREAKTHROUGH PAIN; Start 03/13/19 at 19:00 Acetaminophen (Tylenol Tab) 1,000 mg Q8 PO Last administered on 03/15/19at 05:42; Admin Dose 1,000 MG; Start 03/13/19 at 22:00 Ondansetron HCl (Zofran Inj) 4 mg Q4H PRN IV NAUSEA/VOMITING; Start 03/14/19 at 19:00 Gabapentin (Neurontin) 300 mg QHS PO Last administered on 03/14/19at 21:04; Admin Dose 300 MG; Start 03/13/19 at 21:00 Pantoprazole (Protonix Tab) 40 mg DAILY@06 PO Last administered on 03/15/19at 05:40; Admin Dose 40 MG; Start 03/14/19 at 06:00 Docusate Sodium (Colace) 200 mg BID PO Last administered on 03/15/19 08:43; Admin Dose 200 MG; Start 03/14/19 at 09:00; Stop 03/16/19 at 21:01 Simethicone (Mylicon) 80 mg TID PRN PO .GAS; Start 03/13/19 at 19:00 Senna/Docusate Sodium (Senokot-S) 2 tab BID PRN PO .CONSTIPATION Last administered on 03/15/19at 08:43; Admin Dose 2 TAB; Start 03/13/19 at 19:00 Magnesium Hydroxide (Milk Of Mag) 30 ml HS PRN PO .CONSTIPATION Last administered on 03/15/19 08:43; Admin Dose 30 ML; Start 03/13/19 at 19:00 Bisacodyl (Dulcolax Supp) 10 mg DAILY PRN [place] .CONSTIPATION; Start 03/13/19 at 19:00 Sodium Biphosphate/ Sodium Phosphate (Fleet Enema) 133 ml DAILY PRN [place] .CONSTIPATION; Start 03/13/19 at 19:00 Naloxone HCl (Narcan) 0.2 mg Q2M PRN IV .RESP RATE; Start 03/13/19 at 19:00 IV Flush (NS 3 ml) 3 ml per protocol IV ; Start 03/13/19 at 19:00 Bethanechol Chloride (Urecholine) 25 mg URINARY CATH D/C PRN PO UNABLE TO VOID; Start 03/13/19 at 19:00 Patient Own Medication 1 ea DAILY PO Last administered on 03/15/19at 08:44; Admin Dose 1 EA; Start 03/15/19 at 09:00 Patient Own Medication 1 ea BID PO Last administered on 03/15/19at 08:44; Admin Dose 1 EA; Start 03/15/19 at 09:00 Potassium Phosphate 60 meq/ Sodium Chloride 263.6364 ml @ 65.909 m... ONCE ONCE IVPB ; Start 03/15/19 at 12:00; Stop 03/15/19 at 15:59; Status RIGOBERTO VANN Mar 15, 2019 12:16
[2019-03-15] MEDS: SOD CHLORIDE 0.45% 1,000 ML IV SCH (13:04)
[2019-03-15] MEDS ORDERED: SOD CHLORIDE 0.9% IVPB ONE (14:30)
[2019-03-15] MEDS ORDERED: SODIUM PHOSPHATE IVPB ONE (14:30)
[2019-03-15 16:03] VITALS: BP 110/59; PULSE 72; RESP 18
[2019-03-15 19:47] VITALS: BP 144/77; PULSE 62; RESP 18
[2019-03-15] MEDS: ROSUVASTATIN CALCIUM 40 MG TABLET PO SCH (21:13)
[2019-03-15] MEDS: MIRTAZAPINE 15 MG TAB PO SCH (21:14)
[2019-03-15] MEDS: GABAPENTIN 300 MG CAP PO SCH (21:17)
[2019-03-15] MEDS ORDERED: DIAZEPAM 5 MG TAB PO ONE (23:00)
[2019-03-16 00:16] VITALS: BP 176/84; PULSE 66; RESP 18
[2019-03-16 01:00] VITALS: BP 154/76; RESP 18
[2019-03-16] MEDS: HYDROmorphONE 0.5 MG/0.5 ML SYG IV PRN ×2 (02:56→22:12)
[2019-03-16 04:07] VITALS: BP 118/63; PULSE 68; RESP 18
[2019-03-16] MEDS: SOD CHLORIDE 0.45% 1,000 ML IV SCH ×2 (05:10→14:17)
[2019-03-16] MEDS: ACETAMINOPHEN 500 MG TAB PO SCH ×3 (06:00→23:08)
[2019-03-16 08:00] VITALS: BP 123/71; PULSE 71; RESP 18
[2019-03-16] MEDS: FAMOTIDINE 20 MG TAB PO SCH (08:36)
[2019-03-16] MEDS: MULTIVITAMINS THERAPEUTIC TAB PO SCH (08:36)
[2019-03-16] MEDS: DOCUSATE SODIUM 100 MG CAP PO SCH ×2 (08:36→21:00)
[2019-03-16] MEDS: ACYCLOVIR 400 MG TAB PO SCH (08:36)
[2019-03-16] MEDS: CALCIUM/VITAMIN D (500/200) TAB PO SCH ×2 (08:36→21:00)
[2019-03-16] MEDS: CHOLECALCIFEROL 1,000 UNIT TAB PO SCH (08:36)
[2019-03-16] MEDS: PATIENT'S OWN MEDICATION PO SCH ×3 (08:37→21:04)
--- NOTE | 2019-03-16 10:56 | PN ---
Date/Time of Note Date/Time of Note DATE: 03/16/19 TIME: 10:49 Assessment/Plan VTE Prophylaxis Risk score (from Ns)>0 risk: 12 SCD applied (from Ns): No SCD contraindicated: other Pharmacological prophylaxis: heparin Lines/Catheters IV [facility]ter Type (from [facility]): Peripheral IV Urinary Cath still in place: Yes Reason Cath still needed: urinary retention Assessment/Plan Hospital Course S: Patient had no acute events overnight. O: VS- see below PE: Gen: comfortable, sleeping. Eyes: Pupils minimally reactive to light bilaterally. No icterus HEENT: Moist mucous membranes, clear oropharynx Neck: No lymphadenopathy, supple, nontender. Card: Regular rate and rhythm, 3/6 systolic ejection murmur loudest at RUSB and LUSB. Chest: well healed sternotomy scar Pulm: Clear to auscultation bilaterally Abd: Soft, nontender, nondistended. Hypoactive bowel sounds. Ext: L hip dressing clean, dry, minimal blood. Assessment/Plan: 84 yo man history of aortic valve replacement, HIV presents with L hip fracture and subdural hematoma after fall #Subdural hematoma-neurosurgery team consulted- Repeat head CT shows no significant change in bleed. -Monitor, follow-up neurosurgery recognitions, continue PT #L hip fracture- s/p L hip hemiarthroplasty 03/13 -For now continue pain control -Start heparin subcu today -Continue PT, OT, follow-up orthopedic surgery recommendations #Aortic valve replacement- Patient does report some dyspnea on exertion recently, otherwise no major CHF or ACS symptoms-earlier cardiology team Dr. Bass consulted for pre-op clearance. 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 CD4 >400- No signs or symptoms of acute HIV or opportunistic infections. - Continue home antiretrovirals, acyclovir #Chronic lower back pain -Monitor, continue PT, holding home NSAID for intracranial bleed -Cautious use of PRN opioids as above. #Dyslipidemia - Cont statin #Osteoporosis - Cont vitamin D DVT: SCDs only GI: Protonix PO Dispo: Likely home in the next 1 to 2 days with home health once cleared by rehabilitation consultant teams. Result Diagram: 03/16/19 0629 03/16/19 0629 Results 24hrs Laboratory Tests Test 03/16/19 06:29 White Blood Count 4.6 L Red Blood Count 3.09 L Hemoglobin 9.3 L Hematocrit 28.8 L Mean Corpuscular Volume 93.2 Mean Corpuscular Hemoglobin 30.1 Mean Corpuscular Hemoglobin Concent 32.3 Red Cell Distribution Width 14.3 Platelet Count 90 L Mean Platelet Volume 11.4 H Immature Granulocytes % 0.200 Neutrophils % 61.5 Lymphocytes % 27.9 Monocytes % 7.8 Eosinophils % 2.2 Basophils % 0.4 Nucleated Red Blood Cells % 0.0 Immature Granulocytes # 0.010 Neutrophils # 2.9 Lymphocytes # 1.3 Monocytes # 0.4 Eosinophils # 0.1 Basophils # 0.0 Nucleated Red Blood Cells # 0.0 Prothrombin Time 15.7 H Prothrombin Time Ratio 1.2 INR International Normalized Ratio 1.24 Sodium Level 142 Potassium Level 3.8 Chloride Level 106 Carbon Dioxide Level 32 H Anion Gap 4 L Blood Urea Nitrogen 13 Creatinine 0.54 L Est Glomerular Filtrat Rate mL/min Glucose Level 107 Calcium Level 7.7 L Phosphorus Level 2.6 Magnesium Level 1.9 Exam/Review of Systems Exam Vitals Vital Signs Date Temp Pulse Resp B/P (MAP) Pulse Ox O2 O2 Flow FiO2 Time Delivery Rate 03/16/19 Nasal 4.0 08:30 Cannula 03/16/19 98.0 71 18 123/71 98 08:00 (88) Intake and Output 03/15/19 03/15/19 03/16/19 1515:00 23:00 07:00 IntakeIntake Total 940 ml 1665 ml 920 ml OutputOutput Total 1400 ml 600 ml BalanceBalance 940 ml 265 ml 320 ml Results Results 24hrs Laboratory Tests Test 03/16/19 06:29 White Blood Count 4.6 L Red Blood Count 3.09 L Hemoglobin 9.3 L Hematocrit 28.8 L Mean Corpuscular Volume 93.2 Mean Corpuscular Hemoglobin 30.1 Mean Corpuscular Hemoglobin Concent 32.3 Red Cell Distribution Width 14.3 Platelet Count 90 L Mean Platelet Volume 11.4 H Immature Granulocytes % 0.200 Neutrophils % 61.5 Lymphocytes % 27.9 Monocytes % 7.8 Eosinophils % 2.2 Basophils % 0.4 Nucleated Red Blood Cells % 0.0 Immature Granulocytes # 0.010 Neutrophils # 2.9 Lymphocytes # 1.3 Monocytes # 0.4 Eosinophils # 0.1 Basophils # 0.0 Nucleated Red Blood Cells # 0.0 Prothrombin Time 15.7 H Prothrombin Time Ratio 1.2 INR International Normalized Ratio 1.24 Sodium Level 142 Potassium Level 3.8 Chloride Level 106 Carbon Dioxide Level 32 H Anion Gap 4 L Blood Urea Nitrogen 13 Creatinine 0.54 L Est Glomerular Filtrat Rate mL/min Glucose Level 107 Calcium Level 7.7 L Phosphorus Level 2.6 Magnesium Level 1.9 Medications Medication Current Medications IV Flush (NS 3 ml) 3 ml PER PROTOCOL IV ; Start 03/11/19 at 16:30 Ondansetron HCl (Zofran Inj) 4 mg Q6H PRN IV NAUSEA/VOMITING; Start 03/11/19 at 16:30 Acyclovir (Zovirax) 400 mg DAILY PO Last administered on 03/16/19 08:36; Admin Dose 400 MG; Start 03/12/19 at 09:00 Calcium/Vitamin D (Oyster Shell/ Vit-D (500/200)) 1 tab BID PO Last administered on 03/16/19 08:36; Admin Dose 1 TAB; Start 03/11/19 at 21:00 Cholecalciferol (Vitamin D) 1,000 unit DAILY PO Last administered on 03/16/19 08:36; Admin Dose 1,000 UNIT; Start 03/12/19 at 09:00 Mirtazapine (Remeron) 15 mg HS PO Last administered on 03/15/19 21:14; Admin Dose 15 MG; Start 03/11/19 at 21:00 Multivitamins Therapeutic (Theragran) 1 tab DAILY PO Last administered on 03/16/19 08:36; Admin Dose 1 TAB; Start 03/12/19 at 09:00 Rosuvastatin Calcium (Crestor) 40 mg QHS PO Last administered on 03/15/19 21:13; Admin Dose 40 MG; Start 03/11/19 at 21:00 Hydralazine HCl (Apresoline) 10 mg Q4H PRN IV ELEVATED SYSTOLIC BP; Start 03/11/19 at 16:30 Miscellaneous Information (*Order Clarification Bulletin) MEDICATION REQUIRES CLARIFICATI... Q8H XX ; Start 03/12/19 at 09:00 Acetaminophen (Tylenol Tab) 650 mg Q6H PRN PO MILD PAIN(1-3)OR ELEVATED TEMP Last administered on 03/15/19 08:42; Admin Dose 650 MG; Start 03/13/19 at 09:00 Albumin Human 250 ml @ 750 mls/hr ICU RECOVERY PRN IV SBP less than 90 mmHg; Start 03/13/19 at 18:30 Miscellaneous Information (* Miscellaneous Pharmacy Order) FENTANYL: 20 MCG SPI ... GIVEN NEURAXIAL XX ; Start 03/13/19 at 18:30 Albuterol (Proventil 0.083% (Neb)) 2.5 mg ICU RECOVERY PRN HHN .WHEEZING; Start 03/13/19 at 18:30 Oxycodone HCl (Roxicodone) 15 mg Q4H PRN PO PAIN 9-10; Start 03/13/19 at 19:00 Oxycodone HCl (Roxicodone) 10 mg Q4H PRN PO PAIN 6-8 Last administered on 03/16/19at 01:00; Admin Dose 10 MG; Start 03/13/19 at 19:00 Oxycodone HCl (Roxicodone) 5 mg Q4H PRN PO PAIN 4-5; Start 03/13/19 at 19:00 Acetaminophen (Tylenol Tab) 1,000 mg Q8 PO Last administered on 03/15/19at 22:16; Admin Dose 1,000 MG; Start 03/13/19 at 22:00 Ondansetron HCl (Zofran Inj) 4 mg Q4H PRN IV NAUSEA/VOMITING; Start 03/14/19 at 19:00 Gabapentin (Neurontin) 300 mg QHS PO Last administered on 03/15/19at 21:17; Admin Dose 300 MG; Start 03/13/19 at 21:00 Docusate Sodium (Colace) 200 mg BID PO Last administered on 03/16/19at 08:36; Admin Dose 200 MG; Start 03/14/19 at 09:00; Stop 03/16/19 at 21:01 Simethicone (Mylicon) 80 mg TID PRN PO .GAS; Start 03/13/19 at 19:00 Senna/Docusate Sodium (Senokot-S) 2 tab BID PRN PO .CONSTIPATION Last administered on 03/15/19 08:43; Admin Dose 2 TAB; Start 03/13/19 at 19:00 Magnesium Hydroxide (Milk Of Mag) 30 ml HS PRN PO .CONSTIPATION Last adm inistered on 7/1/19at 08:43; Admin Dose 30 ML; Start 03/13/19 at 19:00 Bisacodyl (Dulcolax Supp) 10 mg DAILY PRN [place] .CONSTIPATION; Start 03/13/19 at 19:00 Sodium Biphosphate/ Sodium Phosphate (Fleet Enema) 133 ml DAILY PRN [place] .CONSTIPATION; Start 03/13/19 at 19:00 Naloxone HCl (Narcan) 0.2 mg Q2M PRN IV .RESP RATE; Start 03/13/19 at 19:00 IV Flush (NS 3 ml) 3 ml per protocol IV ; Start 03/13/19 at 19:00 Bethanechol Chloride (Urecholine) 25 mg URINARY CATH D/C PRN PO UNABLE TO VOID; Start 03/13/19 at 19:00 Patient Own Medication 1 ea DAILY PO Last administered on 03/16/19at 08:37; Admin Dose 1 EA; Start 03/15/19 at 09:00 Patient Own Medication 1 ea BID PO Last administered on 03/16/19at 08:37; Admin Dose 1 EA; Start 03/15/19 at 09:00 Sodium Chloride 1,000 ml @ 60 mls/hr [id number] IV Last administered on 03/15/19at 13:04; Admin Dose 60 MLS/HR; Start 03/15/19 at 12:30 Hydromorphone HCl (Dilaudid) 0.5 mg Q4H PRN IV .SEVERE PAIN 7-10 Last administered on 03/16/19at 02:56; Admin Dose 0.5 MG; Start 03/15/19 at 12:30 Famotidine (Pepcid) 20 mg DAILY PO Last administered on 03/16/19at 08:36; Admin Dose 20 MG; Start 03/16/19 at 09:00 Miscellaneous Information RECEIVED BAG # [id number]... BID@10,16 XX ; Start 03/16/19 at 10:00 Heparin Sodium (Porcine) (Heparin (5000 Units/1ml)) 5,000 unit BID SC ; Start 03/16/19 at 11:00; Status RIGOBERTO VANN Mar 16, 2019 10:56
[2019-03-16] MEDS: SENNA/DOCUSATE NA (8.6MG/50MG) TAB PO PRN (11:39)
[2019-03-16] MEDS: HEPARIN 5,000 UNIT/1 ML VIAL SC SCH ×2 (11:42→21:16)
[2019-03-16] MEDS: oxyCODONE 5 MG TAB PO PRN ×2 (13:39→14:29)
[2019-03-16 16:22] VITALS: BP 148/71; PULSE 67; RESP 20
[2019-03-16 20:30] VITALS: BP 134/72; PULSE 57; RESP 18
[2019-03-16] MEDS: MIRTAZAPINE 15 MG TAB PO SCH (21:00)
[2019-03-16] MEDS: ROSUVASTATIN CALCIUM 40 MG TABLET PO SCH (21:00)
[2019-03-16] MEDS: GABAPENTIN 300 MG CAP PO SCH (21:00)
[2019-03-16] MEDS ORDERED: ZOLPIDEM 5 MG TAB PO PRN (23:00)
[2019-03-17 00:02] VITALS: BP 130/78; PULSE 71; RESP 18
[2019-03-17 04:11] VITALS: BP 132/73; PULSE 73; RESP 18
[2019-03-17] MEDS: ACETAMINOPHEN 500 MG TAB PO SCH ×2 (06:00→14:11)
[2019-03-17] MEDS: SOD CHLORIDE 0.45% 1,000 ML IV SCH (07:17)
[2019-03-17 07:25] VITALS: BP 153/82; PULSE 67; RESP 18
[2019-03-17] MEDS: PATIENT'S OWN MEDICATION PO SCH ×2 (08:55)
[2019-03-17] MEDS: CHOLECALCIFEROL 1,000 UNIT TAB PO SCH (08:56)
[2019-03-17] MEDS: CALCIUM/VITAMIN D (500/200) TAB PO SCH (08:56)
[2019-03-17] MEDS: ACYCLOVIR 400 MG TAB PO SCH (08:56)
[2019-03-17] MEDS: FAMOTIDINE 20 MG TAB PO SCH (08:56)
[2019-03-17] MEDS: MULTIVITAMINS THERAPEUTIC TAB PO SCH (08:56)
[2019-03-17] MEDS: HEPARIN 5,000 UNIT/1 ML VIAL SC SCH (08:57)
[2019-03-17 11:03] VITALS: BP 148/86; PULSE 76; RESP 18
--- NOTE | 2019-03-17 11:12 | PDOCDIS ---
Discharge Instructions CONDITION [id number] Patient Condition: [id number] Stable RIGOBERTO VILLELA Mar 17, 2019 11:12
--- NOTE | 2019-03-17 11:16 | DS ---
Date/Time of Note Date/Time of Note DATE: 03/17/19 TIME: 11:13 Discharge Summary Admission/Discharge Info Admit Date/Time Mar 11, 2019 at 14:10 Discharge Date/Time Discharge Diagnosis #Subdural hematoma-neurosurgery team consulted- Repeat head CT shows no signif icant change in bleed. 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 CD4 >400- No signs or symptoms of acute HIV or opportunistic infections. #Chronic lower back pain #Dyslipidemia #Osteoporosis Patient Condition: Stable Procedures Date/Time of Note Date/Time of Note DATE: 03/13/19 TIME: 20:13 Operative Report Procedure Date: Mar 13, 2019 Preoperative Diagnosis Left femoral neck fracture Postoperative Diagnosis As above Operation/Procedure Performed Left cemented hip hemiarthroplasty Hx of Present Illness 84 yo Lao-speaking man with history of HIV and aortic valve replacement who presents after falling out of bed. He was in his usual state of health until about 3 am this morning when he woke up to urinate. While trying to get out of bed he fell and landed on his L hip and had severe pain. His roommate helped him back into bed. By the morning the hip pain had not improved so he called an ambulance to take him to the ED. He reports that overall he is healthy and is mostly independent. Lives with roommate. Last hospitalization more than a year ago. In the ED he was afebrile, P 70, slightly hypertensive to 150/106. Labs unremarkable including negative troponin. XR of the hip showed a L femoral neck fracture. CT head showed a 5mm subdural hemorrhage in the L anterior cranial fossa. Hospital Course Patient was admitted and seen by cardiology, neurosurgery, and orthopedic surgery teams. Patient found with the subdural hematoma and evaluated by neurosurgery team for that. However repeat brain scans did not show any significant change in the bleed. Anticoagulants were held initially on the patient's admission. Regarding the hip fracture patient underwent left hip hemiarthroplasty. Patient tolerated procedure well, worked with physical therapy afterwards. After getting clearance from the neurosurgery team, a few days after it was okay to resume the anticoagulation which was started per orthopedic surgery recommendations, heparin subcu. vital signs are stable, patient tolerated diet. [facility] condition. See printed medicine reconciliation sheet for full list of discharge medications. Home Meds Reported Medications Hydrocodone/Acetaminophen (B[place]roft 7.5-325 Tablet) 1 Each Tablet, 1 EACH PO Q6H PRN for PRN, TAB 03/11/19 Doxepin Hcl* (Doxepin Hcl*) 10 Mg Capsule, 10 MG PO HS, CAP 03/11/19 Alendronate Sodium* (Fosamax*) 70 Mg Tablet, 70 MG PO Q7D, #4 TAB 03/11/19 Maraviroc (Selzentry) 300 Mg Tablet, 300 MG PO BID, TAB 03/11/19 Rosuvastatin Calcium* (Crestor*) 40 Mg Tablet, 40 MG PO QHS, #30 TAB 03/11/19 Mirtazapine* (Mirtazapine*) 15 Mg Tablet, 15 MG PO HS, TAB 03/11/19 Dolutegravir/Rilpivirine (Juluca 50-25 mg Tablet) 1 Each Tablet, 1 EACH PO DAILY, TAB 03/11/19 Acyclovir* (Acyclovir*) 400 Mg Tablet, 400 MG PO DAILY, TAB 03/11/19 Meloxicam* (Mobic*) 15 Mg Tablet, 15 MG PO DAILY, #30 TAB 03/11/19 Cyanocobalamin (Vitamin B-12) (Cyanocobalamin Injection) 1,000 Mcg/1 Ml Vial, 1000 MCG IJ Q28D, VIAL 03/11/19 Calcium Carbonate/Vitamin D3 (OYSTER SHELL 500 MG + VIT D TB) 1 Each Tablet, 1 EACH PO BID, TAB 03/11/19 Cholecalciferol* (Vitamin D3*) 1,000 Unit Tablet, 1000 UNIT PO DAILY, TAB 03/11/19 Multivitamins* (Theragran*) 1 Tab Tab, 1 TAB PO DAILY, TAB 03/11/19 Discontinued Reported Medications Etravirine (INTELENCE) 200 Mg Tablet, 200 MG PO BID 09/16/14 [Intelence] No Conflict Check, 200 MG BID 10/25/12 Selenium Sulfide (Selenium Sulfide) 180 Ml Shampoo, 180 ML TP 10/22/12 Olopatadine* (Patanol* Ophth) 5 Ml Drops, 5 ML OP TID 10/22/12 Sildenafil Citrate* (Viagra*) 50 Mg Tablet, 50 MG PO PRN 10/22/12 Diphenoxylate Hcl-Atropine (Lomotil) 1 Tab Tablet, 1 TAB PO PRN 10/22/12 Testosterone Cypionate* (Depo-Testosterone*) 200 Mg/Ml Vial, 200 MG IM every 10 days 10/22/12 Hydrocodone Bit/Acetaminophen (Vicodin 5/500 Tablet) 1 Tab Tablet, 1 TAB PO Q4 PRN 10/22/12 Diazepam* (Diazepam*) 10 Mg Tablet, 10 MG PO HS 10/22/12 Mirtazapine* (Remeron* Soltab) 15 Mg/Tab Tab.rapdis, 15 MG PO HS 10/22/12 valACYclovir Hcl* (Valtrex*) 500 Mg Tablet, 500 MG PO DAILY 10/22/12 Fenofibrate, Micronized* (Fenofibrate*) 160 Mg Tablet, 160 MG PO DAILY 10/22/12 Pravastatin Sodium* (Pravachol*) 80 Mg Tablet, 80 MG PO HS 10/22/12 Aspirin (Aspirin) 81 Mg Tablet, 81 MG PO DAILY 10/22/12 Lisinopril* (Lisinopril*) 5 Mg Tablet, 5 MG PO DAILY 10/22/12 Carvedilol* (Carvedilol*) 6.25 Mg Tablet, 6.25 MG PO BID 10/22/12 Raltegravir Potassium* (Isentress*) 400 Mg Tablet, 400 MG PO BID 10/22/12 Primary Care Provider Not On Staff Doctor Time spent on discharge: > 30 minutes Pending Labs Laboratory Tests Test 03/17/19 06:05 White Blood Count 4.4 10^3/ul (4.8-10.8) Red Blood Count 3.26 10^6/ul (4.70-6.10) Hemoglobin 9.6 g/dl (14.0-18.0) Hematocrit 30.4 % (42.0-52.0) Mean Corpuscular Volume 93.3 fl (82.0-101.0) Mean Corpuscular Hemoglobin 29.4 pg (29.0-33.0) Mean Corpuscular Hemoglobin Concent 31.6 g/dl (32.0-37.0) Red Cell Distribution Width 14.0 % (11.5-14.5) Platelet Count 98 10^3/UL (140-415) Mean Platelet Volume 11.4 fl (7.4-10.4) Immature Granulocytes % 0.500 % (0.001-0.429) Neutrophils % 59.1 % (39.0-77.0) Lymphocytes % 29.6 % (15.0-51.0) Monocytes % 6.5 % (0.0-11.0) Eosinophils % 3.6 % (0.0-7.0) Basophils % 0.7 % (0.0-2.0) Nucleated Red Blood Cells % 0.0 /100WBC (0.0-0.0) Immature Granulocytes # 0.020 10^3/ul (0.0-0.031) Neutrophils # 2.6 10^3/ul (1.6-7.5) Lymphocytes # 1.3 10^3/ul (0.8-2.9) Monocytes # 0.3 10^3/ul (0.3-0.9) Eosinophils # 0.2 10^3/ul (0.0-0.5) Basophils # 0.0 10^3/ul (0.0-0.1) Nucleated Red Blood Cells # 0.0 10^3/ul (0.0-0.0) Prothrombin Time 14.9 Sec (11.9-14.9) Prothrombin Time Ratio 1.2 INR International Normalized Ratio 1.16 Sodium Level 141 mmol/L (135-144) Potassium Level 4.2 mmol/L (3.5-5.1) Chloride Level 104 mmol/L (97-110) Carbon Dioxide Level 34 mmol/L (21-31) Anion Gap 3 (5-13) Blood Urea Nitrogen 11 mg/dl (7-20) Creatinine 0.53 mg/dl (0.61-1.24) Est Glomerular Filtrat Rate mL/min mL/min (>60) Glucose Level 106 mg/dl (70-220) Calcium Level 8.2 mg/dl (8.4-10.2) Phosphorus Level 3.1 mg/dl (2.5-4.9) Magnesium Level 1.8 mg/dl (1.7-2.5) RIGOBERTO VILLELA Mar 17, 2019 11:16
[2019-03-17 15:31] VITALS: BP 127/74; PULSE 69; RESP 18
--- NOTE | 2019-03-17 17:56 | PN ---
Date/Time of Note Date/Time of Note DATE: 03/17/19 TIME: 17:53 Assessment/Plan Lines/Catheters IV Catheter Type (from Nrsg): Peripheral IV Thomas in Place (from Nrsg): Yes Assessment/Plan Chief Complaint/Hosp Course POD#4 s/p left hip hemiarthroplasty. Patient also has a known subdural hematoma. Overall the patient is doing well. He has planned discharge today. -Post op H&H stable -PT/OT. Posterior Hip Precautions -Joints pain control protocol -DVT prophylaxis: SCD's, subcutaneous heparin x6 weeks for DVT prophylaxis -Weight bearing status: as tolerated -Diet: ADAT -Thomas: Discontinue -Discharge planning consult Okay to discharge to SNF from orthopedic standpoint. Follow-up in clinic in 2 weeks Subjective 24 Hr Interval Summary Patient doing well No acute events overnight Pain is well controlled for his hip Exam/Review of Systems Vital Signs Vitals Vital Signs Date Temp Pulse Resp B/P (MAP) Pulse Ox O2 O2 Flow FiO2 Time Delivery Rate 03/17/19 97.9 69 18 127/74 94 Nasal 2.0 15:31 (91) Cannula Intake and Output 03/16/19 03/16/19 03/17/19 1515:00 23:00 07:00 IntakeIntake Total 580 ml 940 ml 400 ml OutputOutput Total 1100 ml 300 ml 2750 ml BalanceBalance -520 ml 640 ml -2350 ml Exam Free Text/Dictation Left lower extremity: Dressing: clean, dry, and intact, no erythema Sensation intact to light touch in a sural, saphenous, deep peroneal, superficial peroneal, medial and lateral plantar nerve distribution. Motor is intact, patient able to dorsiflex and plantarflex ankle and extend and flex great toe. Dorsalis Pedis pulse +2, Brisk capillary refill. Compartments are soft. Calves non-tender to palpation bilaterally. Results Result Diagram: 03/17/1960403/17/19604 LEAH HAWKINS MD Mar 17, 2019 17:56
== END 2019-03-17 19:37 | DRG 956 ==
LOC: E/R 12:32 → ICU 14:10 → TEL 03-14 16:15
PROVIDERS: ADMIT Neurological Surgery; ATTEND Hospitalist
PROC: 0SRS039 Replacement of Left Hip Joint, Femoral Surface with Ceramic Synthetic Substitute, Cemented, Open Approach (ICD-10-PCS; principal; 2019-03-14)
DX: S72.002A Fracture of unspecified part of neck of left femur, initial encounter for closed fracture (principal); S06.5X9A Traumatic subdural hemorrhage with loss of consciousness of unspecified duration, initial encounter; E78.5 Hyperlipidemia, unspecified; G89.29 Other chronic pain; M54.5 Low back pain; M81.0 Age-related osteoporosis without current pathological fracture; I48.91 Unspecified atrial fibrillation; I25.10 Atherosclerotic heart disease of native coronary artery without angina pectoris; I10 Essential (primary) hypertension; R50.9 Fever, unspecified; W06.XXXA Fall from bed, initial encounter; Y92.003 Bedroom of unspecified non-institutional (private) residence as the place of occurrence of the external cause; Z95.2 Presence of prosthetic heart valve; Z95.1 Presence of aortocoronary bypass graft
CPT/HCPCS: 36415; 36430; 70450; 71045; 72170; 73500; 73510; 73530; 80048; 80053; 80061; 83036; 83735; 84100; 84443; 84484; 85025; 85610; 85730; 86360; 86701; 86703; 86850; 86900; 86901; 86920; 87081; 87536; 88305; 88311; 93005; 93306; 96361; 96374; 96375; 97116; 97162; 97165; 97530; 97535; C1713; C1776; J0360; J0690; J1100; J1170; J1644; J1940; J2175; J2270; J2370; J2405; J2765; J2795; J3010; J3475; J7030; J7040; J7120; P9016